=== PATIENT | male | born 1985 | race Caucasian/White ===

== ENCOUNTER 2020-07-23 02:50 | Outpatient (CLI) | payer MEDICAID, SELFPAY ==
[2020-07-23 09:12] LABS: Abs Immature Grans 0.02 10^3/uL (0.0-0.06); Absolute Basophil Count 0.09 10^3/uL (0.0-0.2); Absolute Eosinophil Count 0.12 10^3/uL (0.0-0.7); Absolute Monocyte Count 0.35 10^3/uL (0.1-0.8); Absolute Neutrophil Count 6.06 10^3/uL (1.2-6.7); Basophils % 1.1; Eosinophils % 1.5; HCT 37.7 % (40.0-50.0); HGB 11.5 g/dL (13.5-17.5); Immature Grans % 0.2; Lymphocytes % 17.4; MCHC 30.5 % (32.0-36.0); MCV 98.4 fL (80-95); MPV 10.7 fL (8.0-11.0); Monocytes % 4.4; Neutrophils % 75.4; Nucleated RBC 0 %; Platelet Count 228 10^3/uL (130-400); RBC 3.83 10^6/uL (4.36-5.78); RDW 13.4 % (11.8-14.1); RDW-SD 48.5 fL; WBC 8.04 10^3/uL (4.4-10.8)
[2020-07-23 09:35] LABS: ALT 62 U/L (16-63); AST 75 U/L (15-37); Albumin 4.3 g/dL (3.4-5.0); Alkaline Phosphatase 77 U/L (46-116); Anion Gap 10.3 mmol/L (3-11); BUN 22 mg/dL (7-18); Bilirubin, Total 0.7 mg/dL (0.2-1.0); CO2 34.7 mmol/L (21.0-32.0); CREATININE 1.9 mg/dL (0.70-1.30); Calcium 6.6 mg/dL (8.5-10.1); Chloride 99 mmol/L (98-107); Estimated GFR 40.54 (mL/min/1.73m2); Glucose 93 mg/dL (74-106); Potassium 3.9 mmol/L (3.5-5.1); Sodium 144 mmol/L (136-145); Total Protein 8.5 g/dL (6.4-8.2)
[2020-07-23 09:36] LABS: TSH (W/Ref FT4) 186.87 uIU/mL (0.36-3.74)
[2020-07-23 09:55] LABS: FREE T4 0.19 ng/dL (0.76-1.46)
[2020-07-23 12:44] LABS: Vitamin D 25 Total 8.2 ng/ml (30-100)
[2020-07-24 10:48] LABS: Parathyroid Hormone,Intact <6 pg/mL (19-88)
== END 2020-07-23 02:51 | disposition home or self-care (01) ==
LOC: LBO 02:50
PROVIDERS: PCP Internal Medicine; Visit Provider Family Medicine
DX: E03.9 Hypothyroidism, unspecified (principal); I10 Essential (primary) hypertension; E89.2 Postprocedural hypoparathyroidism; E55.9 Vitamin D deficiency, unspecified
CPT/HCPCS: 36415; 80053; 82306; 82330; 83970; 84439; 84443; 85025

== ENCOUNTER 2020-08-31 17:07 | Outpatient (REF) | payer MEDICAID, SELFPAY ==
[2020-08-31 21:06] LABS: Anion Gap 10.6 mmol/L (3-11); BUN 25 mg/dL (7-18); CO2 32.4 mmol/L (21.0-32.0); CREATININE 1.8 mg/dL (0.70-1.30); Calculated LDL 140 mg/dL (<100); Chloride 102 mmol/L (98-107); Cholesterol 191 mg/dL (<200); Estimated GFR 42.91 (mL/min/1.73m2); Glucose 87 mg/dL (74-106); HDL Cholesterol 40 mg/dL (40-60); Potassium 4.8 mmol/L (3.5-5.1); Sodium 145 mmol/L (136-145); Triglyceride 59 mg/dL (<150)
[2020-08-31 21:20] LABS: Vitamin D 25 Total 18.9 ng/mL (30-100)
[2020-08-31 21:50] LABS: TSH 126.65 uIU/mL (0.36-3.74)
== END 2020-08-31 17:08 | disposition home or self-care (01) ==
LOC: NCHCN 17:07
PROVIDERS: PCP Family Medicine; Visit Provider Family Medicine
DX: I10 Essential (primary) hypertension (principal); E78.5 Hyperlipidemia, unspecified; E03.1 Congenital hypothyroidism without goiter; E89.2 Postprocedural hypoparathyroidism
CPT/HCPCS: 80048; 80061; 82306; 84443

== ENCOUNTER 2020-12-21 18:31 | Outpatient (REF) | payer MEDICAID, SELFPAY ==
[2020-12-21 15:58] LABS: Anion Gap 10.8 mmol/L (3-11); BUN 22 mg/dL (7-18); CO2 28.2 mmol/L (21.0-32.0); CREATININE 1.6 mg/dL (0.70-1.30); Calcium 7.1 mg/dL (8.5-10.1); Chloride 102 mmol/L (98-107); Estimated GFR 49.15 (mL/min/1.73m2); Glucose 117 mg/dL (74-106); Potassium 3.8 mmol/L (3.5-5.1); Sodium 141 mmol/L (136-145)
[2020-12-21 16:37] LABS: TSH 165.71 uIU/mL (0.36-3.74)
== END 2020-12-21 18:32 | disposition home or self-care (01) ==
LOC: NCHCN 18:31
PROVIDERS: PCP Family Medicine; Visit Provider Family Medicine
DX: E03.1 Congenital hypothyroidism without goiter (principal); I10 Essential (primary) hypertension
CPT/HCPCS: 80048; 84443

== ENCOUNTER 2021-03-19 13:12 | Outpatient (REF) | payer MEDICAID, SELFPAY ==
[2021-03-19 21:48] LABS: PHOSPHORUS 7.5 mg/dL (2.6-4.7); TSH 42.33 uIU/mL (0.36-3.74)
== END 2021-03-19 13:13 | disposition home or self-care (01) ==
LOC: NCHCN 13:12
PROVIDERS: PCP Family Medicine; Visit Provider Family Medicine
DX: I10 Essential (primary) hypertension (principal); E03.1 Congenital hypothyroidism without goiter
CPT/HCPCS: 84100; 84443

== ENCOUNTER 2021-09-17 13:10 | Outpatient (REF) | payer MEDICAID, SELFPAY ==
[2021-09-17 21:14] LABS: TSH 15.85 uIU/mL (0.36-3.74)
== END 2021-09-17 13:11 | disposition home or self-care (01) ==
LOC: NCHCN 13:10
PROVIDERS: PCP Family Medicine; Visit Provider Family Medicine
DX: E03.1 Congenital hypothyroidism without goiter (principal)
CPT/HCPCS: 84443

== ENCOUNTER 2021-12-09 11:19 | Outpatient (REF) | payer MEDICAID, SELFPAY ==
[2021-12-09 14:47] LABS: HCT 41.9 % (40.0-50.0); MCH 28.3 pg (27.0-33.0); MCV 91 fL (80-95); MPV 11.1 fL (8.0-11.0); Platelet Count 375 10^3/uL (130-400); RBC 4.59 10^6/uL (4.36-5.78); RDW-SD 47.5 fL; WBC 11.79 10^3/uL (4.4-10.8)
[2021-12-09 15:02] LABS: ALT 43 U/L (16-63); AST 43 U/L (15-37); Albumin 3.9 g/dL (3.4-5.0); Alkaline Phosphatase 111 U/L (46-116); BUN 25 mg/dL (7-18); Bilirubin, Total 0.5 mg/dL (0.2-1.0); CREATININE 1.6 mg/dL (0.70-1.30); Chloride 101 mmol/L (98-107); Estimated GFR 48.88 (mL/min/1.73m2); Glucose 82 mg/dL (74-106); Potassium 4.2 mmol/L (3.5-5.1); Sodium 143 mmol/L (136-145); TSH 48.66 uIU/mL (0.36-3.74); Total Protein 7.8 g/dL (6.4-8.2)
[2021-12-09 15:19] LABS: PHOSPHORUS 8.7 mg/dL (2.6-4.7)
[2021-12-09 15:23] LABS: Calcium 5.2 mg/dL (8.5-10.1)
== END 2021-12-09 11:20 | disposition home or self-care (01) ==
LOC: NCHCN 11:19
PROVIDERS: PCP Family Medicine; Visit Provider Family Medicine
DX: E03.1 Congenital hypothyroidism without goiter (principal); I10 Essential (primary) hypertension; E78.5 Hyperlipidemia, unspecified; D68.0 Von Willebrand disease; N18.1 Chronic kidney disease, stage 1
CPT/HCPCS: 80053; 85027; 84100; 84443

== ENCOUNTER 2021-12-10 13:03 | Observation (INO) | payer MEDICAID, SELFPAY ==
[2021-12-10] VITALS (132 sets, daily range): BP systolic 102–170; BP diastolic 62–127; PULSE 55–92; RESP 10–29; TEMP 36.2–36.7; O2SAT 87–98
--- NOTE | 2021-12-10 13:45 | RT.EKG_ITS ---
APPROVED REPORT Exam: Resting ECG Reason for Exam: low calcium Patient Location: E HR:85 bpm ECG Measurements Heart Rate 85 AXIS NJ 142 P 56 QRSd 97 QRS -27 QT 505 T -21 QTc 602 Conclusion Sinus rhythm...normal P axis, V-rate 60- 99 Inferior infarct, age indeterminate...Q>35mS, T neg, II III aVF Nonspecific T abnormalities, lateral leads...T <-0.10mV, I aVL V5 V6 Prolonged QT interval...QTc >500mS
[2021-12-10] MEDS: Calcium Gluconate 4.65 MEQ/10 ML VIAL 4.65 MG IVP ×2 (14:26→17:45)
[2021-12-10 14:28] LABS: Abs Immature Grans 0.05 10^3/uL (0.0-0.06); Absolute Basophil Count 0.13 10^3/uL (0.0-0.2); Absolute Monocyte Count 0.82 10^3/uL (0.1-0.8); Absolute Neutrophil Count 10.87 10^3/uL (1.2-6.7); Basophils % 0.9; Eosinophils % 1.4; HCT 39.7 % (40.0-50.0); HGB 12.9 g/dL (13.5-17.5); Immature Grans % 0.4; Lymphocytes % 13.6; MCH 29.3 pg (27.0-33.0); MCHC 32.5 % (32.0-36.0); MCV 90 fL (80-95); MPV 10.3 fL (8.0-11.0); Monocytes % 5.9; Neutrophils % 77.8; Platelet Count 366 10^3/uL (130-400); RBC 4.41 10^6/uL (4.36-5.78); RDW-SD 46.5 fL; WBC 13.97 10^3/uL (4.4-10.8)
[2021-12-10 14:42] LABS: ALT 38 U/L (16-63); AST 44 U/L (15-37); Albumin 3.8 g/dL (3.4-5.0); Alkaline Phosphatase 99 U/L (46-116); Anion Gap 14.4 mmol/L (3-11); BUN 24 mg/dL (7-18); Bilirubin, Total 0.5 mg/dL (0.2-1.0); CO2 28.6 mmol/L (21.0-32.0); CREATININE 2.1 mg/dL (0.70-1.30); Chloride 101 mmol/L (98-107); Estimated GFR 35.71 (mL/min/1.73m2); Glucose 87 mg/dL (74-106); Magnesium 1.6 mg/dL (1.8-2.4); Potassium 3.7 mmol/L (3.5-5.1); Sodium 144 mmol/L (136-145); Total Protein 8.2 g/dL (6.4-8.2)
[2021-12-10 14:43] LABS: Source Nasal/Nares
[2021-12-10 14:51] LABS: Calcium 5.1 mg/dL (8.5-10.1)
--- NOTE | 2021-12-10 15:49 | ED.GENADUL_ITS ---
Discharge Plan Disposition Patient Disposition: [facility] INPATIENT Condition: Serious Discharge Details Clinical Impression: Hypocalcemia, Prolonged QT interval Admit Date/Time: 12/10/21 16:35 Admit Provider: Tyrese Pham Attending Provider: Tyrese Pham Primary Care Provider: Gilmar Argueta ED Provider: Jm Cuellar Discharge Data Discharge Date/Time-TO BE ENTERED AT DEPARTURE: 12/10/21 19:57 Medical Decision Making [id number] --36-year-old male with history of thyroidectomy and parathyroidectomy, on prescribed vitamin D and calcium which she has been taking, here with hypocalcemia noted on outpatient screening labs. I reviewed labs that were performed yesterday and calcium was 5.2. He is asymptomatic. An EKG was performed to assess for prolonged QT. EKG was reviewed and interpreted by me: Please see report, sinus rhythm 85 bpm with prolonged QT greater than 500. Patient was given calcium 1 g IV. Labs repeated today and calcium remains low at 5.1. Plan to admit. I called and spoke with Dr. Pham, discussed ED presentation course, he will admit the patient pending telemetry capability. I called and spoke with the supervisor [facility] regarding available telemetry and she will discuss with Dr. Pham. Medical Records Medical records reviewed: Yes I reviewed the patient's medical records. Lab Data Lab results reviewed: Yes I reviewed the patient's lab results. Labs: Laboratory Tests Range/Units 12/10/21 12/10/21 12/10/21 14:20 14:20 14:40 WBC (4.4-10.8) 10^3/uL 13.97 H RBC (4.36-5.78) 10^6/uL 4.41 Hgb (13.5-17.5) g/dL 12.9 L Hct (40.0-50.0) % 39.7 L MCV (80-95) fL 90 MCH (27.0-33.0) pg 29.3 MCHC (32.0-36.0) % 32.5 RDW (11.8-14.1) % 14.0 Plt Count (130-400) 10^3/uL 366 MPV (8.0-11.0) fL 10.3 Immature Gran % 0.4 Neutrophils % 77.8 Lymphocytes % 13.6 Monocytes % 5.9 Eosinophils % 1.4 Basophils % 0.9 Nucleated RBC % (0.0-0.3) % 0.0 Absolute Neutrophils (1.2-6.7) 10^3/uL 10.87 H Absolute Lymphocytes (1.2-3.4) 10^3/uL 1.90 Absolute Monocytes (0.1-0.8) 10^3/uL 0.82 H Absolute Eosinophils (0.0-0.7) 10^3/uL 0.20 Absolute Basophils (0.0-0.2) 10^3/uL 0.13 Sodium (136-145) mmol/L 144 Potassium (3.5-5.1) mmol/L 3.7 Chloride (98-107) mmol/L 101 Carbon Dioxide (21.0-32.0) mmol/L 28.6 Anion Gap (3-11) mmol/L 14.4 H BUN (7-18) mg/dL 24 H Creatinine (0.70-1.30) mg/dL 2.1 H Estimated GFR/1.73 m2 (mL/min/1.73m2) 35.71 Glucose (74-106) mg/dL 87 Calcium (8.5-10.1) mg/dL 5.1 L* Magnesium (1.8-2.4) mg/dL 1.6 L Total Bilirubin (0.2-1.0) mg/dL 0.5 AST (15-37) U/L 44 H ALT (16-63) U/L 38 Alkaline Phosphatase (46-116) U/L 99 Total Protein (6.4-8.2) g/dL 8.2 Albumin (3.4-5.0) g/dL 3.8 COVID-19 Source Nasal/Nares HPI General Mode of arrival: ambulatory . Date/Time Provider Initiated Documentation: 12/10/21 13:48 . Limitations to Documentation: no limitations . Information obtained by: patient and family . HPI Narrative: 36-year-old male with history of thyroidectomy and parathyroidectomy, on calcium, vitamin D and Synthroid, sent by PCP for hypocalcemia noted on routine labs yesterday. Calcium was severely low at 5. No modifiers. Patient notes typically he knows when he is hypocalcemic and has not been feeling any cramping or typical symptoms. No associated seizure. Related Data Home Medications Medication Instructions Recorded Confirmed hydrocodone 5 mg-acetaminophen 325 1 tab PO Q4H PRN PRN #14 tabs 09/04/12 05/10/15 mg tablet ibuprofen 800 mg tablet 800 mg PO TID #60 tabs 09/04/12 05/10/15 colchicine 0.6 mg tablet (Colcrys) 0.6 mg PO DAILY PRN PRN #9 tabs 05/10/15 levothyroxine 300 mcg tablet 300 mcg PO DAILY 12/10/21 12/10/21 lisinopril 10 mg tablet 10 mg PO DAILY 12/10/21 12/10/21 calcitriol 0.25 mcg capsule 0.25 mcg PO BID #60 caps 12/11/21 calcium carbonate 600 mg-vitamin 1 tab PO TID #0 tabs 12/11/21 D3 5 mcg (200 unit) tablet Previous Rx's Medication Instructions Recorded hydrocodone 5 mg-acetaminophen 325 1 tab PO Q4H PRN PRN #14 tabs 09/04/12 mg tablet ibuprofen 800 mg tablet 800 mg PO TID #60 tabs 09/04/12 colchicine 0.6 mg tablet (Colcrys) 0.6 mg PO DAILY PRN PRN #9 tabs 05/10/15 calcitriol 0.25 mcg capsule 0.25 mcg PO BID #60 caps 12/11/21 calcium carbonate 600 mg-vitamin 1 tab PO TID #0 tabs 12/11/21 D3 5 mcg (200 unit) tablet Allergies Allergy/AdvReac Type Severity Reaction Status Date / Time bee venom protein (honey bee) Allergy Anaphylaxis Unverified 12/10/21 15:09 bassam Allergy Anaphylaxis Unverified 12/10/21 15:10 General Stated Complaint: GenMedical AKREN: 3 Review of Systems All systems reviewed & are unremarkable except as noted in HPI and below Constitutional Constitutional: Denies fever(s) Cardiovascular Cardiovascular: Denies chest pain PFSH All Active Problems (Updated 12/12/21 @ 00:06 by REHANA BAUGH) Hypomagnesemia (Acute) Stage 3a chronic kidney disease (Acute) Ankle pain (Acute) Gout (Acute) Renal insufficiency, mild (Acute) Hypocalcemia (Acute) Prolonged QT interval (Acute) Medical History Disorder of thyroid gland Surgical History Thyroid thyroid removed when he was 14. Social History Smoking/Tobacco Use Status: Never Smoking risk assessment performed?: Yes Drug use: Never Do you feel safe at home: Yes Do you feel safe in your relationship?: Yes Additional Social history: lives with his parents in [place]. Not currently working Exam Const General: cooperative and no acute distress HENWI Mouth: moist mucous membranes Eyes Conjunctivae: normal conjunctivae Sclera: normal sclerae Neck Neck: trachea midline and supple Resp Auscultation: clear to auscultation bilaterally, no rales, no rhonchi and no wheezes Cardio Rate: regular rate and not tachycardic Rhythm: regular rhythm GI Palpation: soft, not firm, no guarding, no masses, not rigid and nontender Neuro General: patient alert, patient awake and tone normal Psych Appearance: grossly normal Mental Status: mental status grossly normal Course Vital Signs Vital signs: Vital Signs Temperature 36.2 C L 12/10/21 13:15 Pulse 92 H 12/10/21 13:15 Respiratory Rate 18 12/10/21 13:15 Blood Pressure 166/92 H 12/10/21 13:15 Pulse Oximetry 96 12/10/21 13:15 Temperature 36.2 C L 12/10/21 13:15 Temperature Source Temporal Artery Scan 12/10/21 13:15 Pulse 72 12/10/21 15:36 Pulse 74 12/10/21 15:36 Respiratory Rate 21 12/10/21 15:36 Respiratory Effort Non-Labored 12/10/21 15:02 Respiratory Depth Normal 12/10/21 15:02 Respiratory Pattern Normal 12/10/21 15:02 Blood Pressure 112/74 12/10/21 15:36 Blood Pressure Mean 80 12/10/21 15:36 Blood Pressure Position Sitting 12/10/21 13:15 Pulse Oximetry 92 12/10/21 15:36 Oxygen Delivery Method Room Air 12/10/21 13:15 Oxygen Flow Rate 0 12/10/21 13:15 Pain Level 0 12/10/21 13:15 Lab/Test Results Lab/Test Results: Laboratory Tests Range/Units 12/10/21 12/10/21 12/10/21 14:20 14:20 14:40 WBC (4.4-10.8) 10^3/uL 13.97 H RBC (4.36-5.78) 10^6/uL 4.41 Hgb (13.5-17.5) g/dL 12.9 L Hct (40.0-50.0) % 39.7 L MCV (80-95) fL 90 MCH (27.0-33.0) pg 29.3 MCHC (32.0-36.0) % 32.5 RDW (11.8-14.1) % 14.0 Plt Count (130-400) 10^3/uL 366 MPV (8.0-11.0) fL 10.3 Immature Gran % 0.4 Neutrophils % 77.8 Lymphocytes % 13.6 Monocytes % 5.9 Eosinophils % 1.4 Basophils % 0.9 Nucleated RBC % (0.0-0.3) % 0.0 Absolute Neutrophils (1.2-6.7) 10^3/uL 10.87 H Absolute Lymphocytes (1.2-3.4) 10^3/uL 1.90 Absolute Monocytes (0.1-0.8) 10^3/uL 0.82 H Absolute Eosinophils (0.0-0.7) 10^3/uL 0.20 Absolute Basophils (0.0-0.2) 10^3/uL 0.13 Sodium (136-145) mmol/L 144 Potassium (3.5-5.1) mmol/L 3.7 Chloride (98-107) mmol/L 101 Carbon Dioxide (21.0-32.0) mmol/L 28.6 Anion Gap (3-11) mmol/L 14.4 H BUN (7-18) mg/dL 24 H Creatinine (0.70-1.30) mg/dL 2.1 H Estimated GFR/1.73 m2 (mL/min/1.73m2) 35.71 Glucose (74-106) mg/dL 87 Calcium (8.5-10.1) mg/dL 5.1 L* Magnesium (1.8-2.4) mg/dL 1.6 L Total Bilirubin (0.2-1.0) mg/dL 0.5 AST (15-37) U/L 44 H ALT (16-63) U/L 38 Alkaline Phosphatase (46-116) U/L 99 Total Protein (6.4-8.2) g/dL 8.2 Albumin (3.4-5.0) g/dL 3.8 COVID-19 Source Nasal/Nares
[2021-12-10 17:17] LABS: COVID-19 PCR Negative (Negative)
--- NOTE | 2021-12-10 20:52 | HPE_ITS ---
Date of service: 12/10/21 Time of Service: 20:53 Assessment and Plan Assessment and plan (1) Prolonged QT interval: Status: Acute Assessment and plan: Secondary to hypocalcemia primarily, also hypomagnesemia. See below re: calcium. Also replacing magnesium. Monitoring in ICU on nurse emergency until QTc normalizing. (2) Hypocalcemia: Status: Acute Assessment and plan: This has been a chronic issue with poor control chronically despite calcium and vitamin D3 supplumentation. He would benefit from activated vitamin D, especially with CKD, I have started calcitriol. I did send out PTH and vitamin D levels. He has had 2 grams of calcium in the ED, repeating BMP and calcium infusion ordered, will continue to follow. (3) Stage 3a chronic kidney disease: Status: Acute Assessment and plan: THis has been chronic since 2013 at least with baseline Cr 1.6-1.9. Unclear cause. He is on lisinopril. blood pressure running a bit high now, monitor. (4) Elevated aspartate aminotransferase level: Status: Acute Assessment and plan: This hasn't been evaluated in the past, though high ferritin elevated in the past. Will repeat this with iron/TIBC to assess for hemachromatosis. Hep B/C screens. Given BMI fatty liver also very possible. (5) DVT prophylaxis: Status: Acute Assessment and plan: Yaima score only 1 for BMI, pharmacologic prophylaxis not indicated. (6) Discharge planning issues: Status: Acute Assessment and plan: observation, can discharge once QTc normalized and calcium improved. History of Present Illness History of Present Illness Chief Complaint: low calcium, prolonged QTc Narrative: 36 yo M with surgical hypothyroid and hypoparthyroidism, stage 3a chronic renal insufficiency, low vitamin D, with chronic hypocalcemia sent to the ED by his primary care after routine electrolyte monitoring revealed a calcium of 5.2. In the emergency room an EKG revealed a QTC of 602 and he was treated with calcium gluconate x 2 grams and admission was requested. Randy states he has felt his normal self recently. He had experience symptomatic hypocalcemia in the past with neck/jaw tightness and hair tingling but denies these symptoms now. He denies any recent or current chest pain, palp itations, dizziness, or episodes of passing out. 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 He does take his vitamin D3 as well as calcium carbonate TID. He takes his levothyroxine in the morning with lisinopril. His levothyroxine dose was increased from 300 to 350mcg/day 3 month ago. Review of Systems Constitutional Constitutional: Denies chills, Denies fever(s), Denies headache(s), Reports poor appetite (appetite not great today, relates to being anxious about being here), Denies weakness, Denies weight gain and Denies weight loss Eyes Eyes: Denies change in vision and Denies irritation ENT Ears, Nose, Mouth, and Throat: Denies change in voice, Denies dysphagia, Denies dizziness, Denies headache(s), Denies nasal congestion, Denies nasal discharge and Denies sore throat Cardiovascular Cardiovascular: Denies chest pain, Denies syncope, Denies leg edema, Denies lightheadedness, Denies palpitations and Denies dyspnea Respiratory Respiratory: Denies cough, Denies excessive phlegm production, Denies dyspnea and Denies wheezing Gastrointestinal Gastrointestinal: Denies abdominal pain, Denies constipation, Denies dysphagia, Denies heartburn, Denies loose stools, Denies nausea and Denies vomiting Genitourinary Genitourinary: Denies hematuria, Denies dysuria and Denies urinary incontinence Musculoskeletal Musculoskeletal: Reports arthralgias (just chronic in ankles, arthritis) and Denies joint swelling Comments: gets gout once a year or so, not recently Integumentary/Breasts Skin/Breast: Denies rash and Denies skin ulcer Neurologic Neurologic: Denies abnormal speech, Denies dizziness, Denies syncope, Denies headache(s), Denies localized weakness, Denies seizure-like activity, Denies sensory deficit, Denies paresthesias, Denies tremor(s) and Denies weakness Psychiatric Psychiatric: Reports anxiety and Denies mood swings Endocrine Endocrine: Denies palpitations Hematologic/Lymphatic Hematologic/Lymphatic: Denies easy bleeding Allergic/Immunologic Allergic/Immunologic: Denies wheezing PFSH All Active Problems (Updated 12/10/21 @ 21:23 by Kristian Hamilton) Discharge planning issues (Acute) DVT prophylaxis (Acute) Elevated aspartate aminotransferase level (Acute) Stage 3a chronic kidney disease (Acute) Ankle pain (Acute) Gout (Acute) Renal insufficiency, mild (Acute) Hypocalcemia (Acute) Prolonged QT interval (Acute) Medical History Disorder of thyroid gland Surgical History Thyroid thyroid removed when he was 14. Social History (Updated 12/10/21 @ 21:02 by Kristian Hamilton) Smoking/Tobacco Use Status: Never Smoking risk assessment performed?: Yes Drug use: Never Do you feel safe at home: Yes Do you feel safe in your relationship?: Yes Additional Social history: lives with his parents in [place]. Not c urrently working Meds Allergies and Home Medications Allergies Allergy/AdvReac Type Severity Reaction Status Date / Time bee venom protein (honey bee) Allergy Anaphylaxis Unverified 12/10/21 15:09 bassam Allergy Anaphylaxis Unverified 12/10/21 15:10 Home Medications Medication Instructions Recorded Confirmed Type hydrocodone 5 mg-acetaminophen 325 1 tab PO Q4H PRN PRN #14 tabs 09/04/12 05/10/15 Rx mg tablet ibuprofen 800 mg tablet 800 mg PO TID #60 tabs 09/04/12 05/10/15 Rx colchicine 0.6 mg tablet (Colcrys) 0.6 mg PO DAILY PRN PRN #9 tabs 05/10/15 Rx calcium carbonate 500 mg-vitamin 1 tab DAILY 12/10/21 12/10/21 History D3 2.5 mcg (100 unit) chewable tablet levothyroxine 300 mcg tablet 300 mcg PO DAILY 12/10/21 12/10/21 History lisinopril 10 mg tablet 10 mg PO DAILY 12/10/21 12/10/21 History Exam Narrative Exam Narrative: GEN: Alert and oriented, pleasant and cooperative, gives linear history. No acute distress at rest. He has a mild stutter. HEENT: Head atraumatic. Conjunctiva clear, no icterus. PEERL, EOMI. no rhinorrhea. MMM, OP benign. Neck is supple with no masses or lymphadenopathy, trachea midline LUNGS: CTAB with normal effort CV: RRR with no murmurs, gallops, or rubs. ABD: +BS, soft, NT/ND EXT: no cyanosis, clubbing, or edema MSK: No joint redness or swelling NEURO: CN 2-12 grossly intact. Normal movement of 4 extremities. Normal speech and coordination. his periorbital muscles twitch slightly with tapping over facial nerve. DTRs 2+ reinaldo. no tremor. not clearly elevated muscle tone. SKIN: No rashs or open wounds. PSYCH: normal mood and affect Results Imaging EKG: image reviewed (NSR, QTc 602, non specific T wave abnormalities) Labs Result diagrams: 12/10/21 14:20 12/10/21 14:20 Labs: Laboratory Results - last 24 hr 12/10/21 12/10/21 12/10/21 14:20 14:20 14:40 WBC 13.97 H RBC 4.41 Hgb 12.9 L Hct 39.7 L MCV 90 MCH 29.3 MCHC 32.5 RDW 14.0 Plt Count 366 MPV 10.3 Immature Gran % 0.4 Neutrophils % 77.8 Lymphocytes % 13.6 Monocytes % 5.9 Eosinophils % 1.4 Basophils % 0.9 Nucleated RBC % 0.0 Absolute Neutrophils 10.87 H Absolute Lymphocytes 1.90 Absolute Monocytes 0.82 H Absolute Eosinophils 0.20 Absolute Basophils 0.13 Sodium 144 Potassium 3.7 Chloride 101 Carbon Dioxide 28.6 Anion Gap 14.4 H BUN 24 H Creatinine 2.1 H Estimated GFR/1.73 m2 35.71 Glucose 87 Calcium 5.1 L* Magnesium 1.6 L Total Bilirubin 0.5 AST 44 H ALT 38 Alkaline Phosphatase 99 Total Protein 8.2 Albumin 3.8 COVID-19 Source Nasal/Nares SARS-CoV-2 (PCR) Negative Last Vital Signs Temp 36.2 C L 12/10/21 13:15 Pulse 66 12/10/21 19:46 Resp 13 12/10/21 19:46 BP 134/86 12/10/21 19:46 Pulse Ox 93 12/10/21 17:06
[2021-12-10] MEDS: MAGNESIUM SULFATE 2 GM/50 ML BAG IVPB (21:26)
[2021-12-10] MEDS: Calcitriol 0.25 MCG CAP PO (21:26)
[2021-12-10 21:44] LABS: Anion Gap 14.8 mmol/L (3-11); BUN 27 mg/dL (7-18); CO2 27.2 mmol/L (21.0-32.0); CREATININE 1.9 mg/dL (0.70-1.30); Chloride 100 mmol/L (98-107); Estimated GFR 40.09 (mL/min/1.73m2); Glucose 90 mg/dL (74-106); Potassium 3.5 mmol/L (3.5-5.1); Sodium 142 mmol/L (136-145)
[2021-12-10 21:53] LABS: Calcium < 5.0 mg/dL (8.5-10.1)
[2021-12-10] MEDS: CALCIUM GLUCONATE in NaCl 1 GM/50 ML BAG IVPB (22:47)
[2021-12-11] VITALS (77 sets, daily range): BP systolic 128–166; BP diastolic 79–108; PULSE 48–95; RESP 8–22; TEMP 36.3–36.7; O2SAT 36–100
[2021-12-11 01:13] LABS: Ferritin 405 ng/mL (26-388)
[2021-12-11 02:36] LABS: Calcium 6.1 mg/dL (8.5-10.1)
[2021-12-11 04:06] LABS: Iron 67 ug/dL (65-175); Total Iron Binding Capacity 267 ug/dL (250-450); Transferrin Sat 25 % (20-55)
[2021-12-11 04:18] LABS: Abs Immature Grans 0.04 10^3/uL (0.0-0.06); Absolute Basophil Count 0.11 10^3/uL (0.0-0.2); Absolute Eosinophil Count 0.28 10^3/uL (0.0-0.7); Absolute Lymphocyte Count 2.03 10^3/uL (1.2-3.4); Absolute Monocyte Count 0.58 10^3/uL (0.1-0.8); Absolute Neutrophil Count 8.07 10^3/uL (1.2-6.7); Eosinophils % 2.5; HCT 39.5 % (40.0-50.0); HGB 12.6 g/dL (13.5-17.5); Immature Grans % 0.4; Lymphocytes % 18.3; MCH 28.9 pg (27.0-33.0); MCHC 31.9 % (32.0-36.0); MCV 91 fL (80-95); MPV 10.2 fL (8.0-11.0); Monocytes % 5.2; Neutrophils % 72.6; Platelet Count 317 10^3/uL (130-400); RBC 4.36 10^6/uL (4.36-5.78); RDW-SD 46.6 fL; WBC 11.12 10^3/uL (4.4-10.8)
[2021-12-11 04:37] LABS: ALT 35 U/L (16-63); AST 37 U/L (15-37); Albumin 3.5 g/dL (3.4-5.0); Alkaline Phosphatase 99 U/L (46-116); Anion Gap 10.9 mmol/L (3-11); BUN 23 mg/dL (7-18); Bilirubin, Total 0.7 mg/dL (0.2-1.0); CO2 28.1 mmol/L (21.0-32.0); CREATININE 1.7 mg/dL (0.70-1.30); Chloride 102 mmol/L (98-107); Estimated GFR 45.58 (mL/min/1.73m2); Glucose 88 mg/dL (74-106); Magnesium 2.3 mg/dL (1.8-2.4); Potassium 3.5 mmol/L (3.5-5.1); Sodium 141 mmol/L (136-145)
[2021-12-11 04:45] LABS: Calcium 6.4 mg/dL (8.5-10.1)
[2021-12-11] MEDS: Levothyroxine 175 MCG TAB 350 MCG PO (05:08)
--- NOTE | 2021-12-11 06:45 | RT.EKG_ITS ---
APPROVED REPORT Exam: Resting ECG Reason for Exam: hypocalcemia, prolonged QTc Patient Location: I HR:75 bpm ECG Measurements Heart Rate 75 AXIS RI 140 P 54 QRSd 109 QRS -30 QT 483 T -20 QTc 540 Conclusion Sinus rhythm...normal P axis, V-rate 50- 99 Left ventricular hypertrophy...multiple voltage criteria Inferior infarct, old...Q >35mS, II III aVF Anterior infarct, old...Q >40mS, abnormal ST-T, V2-V5 Prolonged QT interval...QTc >500mS
[2021-12-11 07:03] LABS: Calcium 7.1 mg/dL (8.5-10.1)
[2021-12-11 07:09] LABS: Ionized Calcium 0.55 mmol/L (1.14-1.35)
[2021-12-11] MEDS: Lisinopril 10 MG TAB PO (08:53)
[2021-12-11] MEDS: Calcium 600mg/Vit D 200U TAB 1 TAB PO (08:53)
[2021-12-11] MEDS: Calcitriol 0.25 MCG CAP PO (08:54)
--- NOTE | 2021-12-11 10:33 | DSE_ITS ---
Date of service: 12/11/21 Time of Service: 10:34 DS: Diagnosis Discharge Diagnosis (1) Prolonged QT interval: Status: Acute (2) Hypocalcemia: Status: Acute (3) Stage 3a chronic kidney disease: Status: Acute (4) Elevated aspartate aminotransferase level: Status: Resolved (5) DVT prophylaxis: Status: Deleted (6) Discharge planning issues: Status: Deleted Discharge Plan Disposition Patient Disposition: HOME Condition: Serious Discharge Details Reason For Visit: Hypocalcemia, Hypomagnesemia, QTC Prolongation Admit Date/Time: 12/10/21 16:35 Admit Provider: Tyrese Pham Attending Provider: Tyrese Pham Primary Care Provider: Gilmar Argueta wendi Hospital Course Hospital Course: 36 yo M with surgical hypothyroid and hypoparthyroidism, stage 3a chronic renal insufficiency, low vitamin D, with chronic hypocalcemia sent to the ED by his primary care after routine electrolyte monitoring revealed a calcium of 5.2.? Ionized calcium low at 0.55. In the emergency room an EKG revealed a QTC of 602 and he was treated with calcium gluconate x 2 grams and admission was requested. Randy states he has felt his normal self recently.? He had experience symptomatic hypocalcemia in the past with neck/jaw tightness and hair tingling but denies these symptoms now.? He denies any recent or current chest pain, palpitations, dizziness, or episodes of passing out.? ?He had his thyroid removed at age 13 due to an enlarged, multinodular, hypoactive gland, and unfortunately he has had low calcium since then.? He does take his vitamin D3 as well as calcium carbonate TID.? He takes his levothyroxine in the morning with lisinopril.? His levothyroxine dose was increased from 300 to 350mcg/day 3 month ago. ? TSH 48.66. Creatinine 1.7; in his baseline range. Magnesium low at 1.6. K was low normal. He and his parents, who he lives with, endorse that he is very regimented in taking his medications. Calcitriol initiated. A calclium infusion initiated. The following day he remained asymptomatic. QTc still prolonged. His calcium had improved to 7.1. His magnesium normalized with supplementation. He was discharged to home on calcitriol and an increased dose of his calcium /Vit D supplement. Lab to be drawn the following Monday. Follow up with PCP next week. Endocrine referral sent by PCP Home Meds and New Rx's Prescriptions: New calcium carbonate-vitamin D3 600 mg-5 mcg (200 unit) Tablet 1 tab PO TID Qty: 0 0RF calcitriol 0.25 mcg Capsule 0.25 mcg PO BID Qty: 60 0RF Continued ibuprofen 800 MG tablet 800 mg PO TID Qty: 60 0RF hydrocodone-acetaminophen 1 TAB tablet 1 tab PO Q4H PRN PRNQty: 14 0RF colchicine [Colcrys] 0.6 MG tablet 0.6 mg PO DAILY PRN PRNQty: 9 0RF Rx Instructions: Take 2 tabs once and then follow with one tab one hour later. If pain persist may repeat 24 hrs later. levothyroxine 300 mcg tablet 300 mcg PO DAILY Label Comments: TAKE ONE TABLET BY MOUTH EVERY DAY ON AN EMPTY STOMACH lisinopril 10 mg tablet 10 mg PO DAILY Discontinued calcium carbonate-vitamin D3 500 mg-2.5 mcg (100 unit) tablet,chewable 1 tab DAILY Label Comments: CHEW AND SWALLOW ONE TABLET THREE TIMES DAILY Discharge Instructions Activity:: Activity as Tolerated Equipment/Supplies:: No Equipment Needed Diet:: Resume usual home diet Discharge Orders Discharge Orders: Discharge Order (Routine); Ordered 12/11/21 Ordered By: Rodney Nevarez Other Ambulatory Orders: Comprehensive Metabolic Panel (Routine) Timeframe: 3 Days Location: None Selected Ordered By: Rodney Nevarez Magnesium (Routine) Timeframe: 3 Days Location: None Selected Ordered By: Rodney Nevarez Discharge Data Discharge Date/Time-TO BE ENTERED AT DEPARTURE: 12/11/21 11:32 DS: Summary Time Spent with Patient providing and/or coordinating discharge services: Greater than 30 minutes Status at Discharge Functional status at discharge: independent ambulation Overall status at discharge: patient is progressing back to baseline Mental Status: mental status grossly normal Speech and Movement: speech and movement normal Mood: congruent mood Affect: normal affect Exam Narrative Exam Narrative: GEN: Sitting in chair eating breakfast. Alert and oriented, pleasant and cooperative, gives linear history. No acute distress at rest. He has a mild stutter. HEENT: Head atraumatic. Conjunctiva clear, no icterus. MMM, OP benign. LUNGS: CTAB with normal effort CV: RRR with no murmurs. ABD: +BS, soft, NT/ND EXT: no cyanosis, clubbing, or edema MSK: No joint redness or swelling NEURO: CN 2-12 grossly intact. Normal movement of 4 extremities. Normal speech and coordination. SKIN: No rashs or open wounds. PSYCH: normal mood and affect Psych Mental Status: mental status grossly normal Speech and Movement: speech and movement normal Mood: congruent mood Affect: normal affect DS: Data Vitals/I&O Vitals and I&O: Vital Signs Temperature 36.3 C L 12/11/21 07:00 Temperature Source Temporal Artery Scan 12/11/21 07:00 Pulse 59 L 12/11/21 06:01 Pulse 77 12/11/21 09:30 Respiratory Rate 16 12/11/21 09:30 Respiratory Effort Non-Labored 12/11/21 07:00 Respiratory Depth Normal 12/11/21 07:00 Respiratory Pattern Normal 12/11/21 07:00 Blood Pressure 148/98 H 12/11/21 06:01 Blood Pressure Mean 110 12/11/21 06:01 Blood Pressure Position Sitting 12/10/21 13:15 Pulse Oximetry 94 12/11/21 09:30 Oxygen Delivery Method Room Air 12/11/21 00:08 Oxygen Flow Rate 0 12/11/21 00:08 Pain Level 0 12/11/21 07:00 Comment 12/11/21 00:40 Intake & Output 12/10/21 12/10/21 12/11/21 11:59 23:59 11:59 Intake Total 50 / 50 1160 / 1160 Output Total 1275 / 1275 Balance 50 / 50 -115 / -115 Weight 123 kg 123 kg Intake: IV 50 / 50 50 / 50 Oral 1110 / 1110 Output: Urine 1275 / 1275 Other: Urine Color Pale Urine Appearance Clear Urine Odor None Voiding Methods Urinal Data Completed and Pending Labs on day of discharge: Labs from last 24 hours 12/11/21 12/11/21 12/11/21 06:35 04:02 04:02 WBC 11.12 H RBC 4.36 Hgb 12.6 L Hct 39.5 L MCV 91 MCH 28.9 MCHC 31.9 L RDW 14.0 Plt Count 317 MPV 10.2 Immature Gran % 0.4 Neutrophils % 72.6 Lymphocytes % 18.3 Monocytes % 5.2 Eosinophils % 2.5 Basophils % 1.0 Nucleated RBC % 0.0 Absolute Neutrophils 8.07 H Absolute Lymphocytes 2.03 Absolute Monocytes 0.58 Absolute Eosinophils 0.28 Absolute Basophils 0.11 Sodium Potassium Chloride Carbon Dioxide Anion Gap BUN Creatinine Estimated GFR/1.73 m2 Glucose Calcium 7.1 L Ionized Calcium Magnesium Iron TIBC Transferrin % Sat Ferritin Total Bilirubin AST ALT Alkaline Phosphatase Total Protein Albumin 25-OH Vitamin D Total Pending PTH Intact COVID-19 Source SARS-CoV-2 (PCR) Hep Bs Antigen Hepatitis C Antibody 12/11/21 12/11/21 12/11/21 04:02 02:00 02:00 WBC RBC Hgb Hct MCV MCH MCHC RDW Plt Count MPV Immature Gran % Neutrophils % Lymphocytes % Monocytes % Eosinophils % Basophils % Nucleated RBC % Absolute Neutrophils Absolute Lymphocytes Absolute Monocytes Absolute Eosinophils Absolute Basophils Sodium 141 Potassium 3.5 Chloride 102 Carbon Dioxide 28.1 Anion Gap 10.9 BUN 23 H Creatinine 1.7 H Estimated GFR/1.73 m2 45.58 Glucose 88 Calcium 6.4 L 6.1 L* Ionized Calcium Magnesium 2.3 Iron TIBC Transferrin % Sat Ferritin Total Bilirubin 0.7 AST 37 ALT 35 Alkaline Phosphatase 99 Total Protein 8.0 Albumin 3.5 25-OH Vitamin D Total PTH Intact COVID-19 Source SARS-CoV-2 (PCR) Hep Bs Antigen Hepatitis C Antibody Pending 12/11/21 12/11/21 12/11/21 02:00 02:00 00:00 WBC RBC Hgb Hct MCV MCH MCHC RDW Plt Count MPV Immature Gran % Neutrophils % Lymphocytes % Monocytes % Eosinophils % Basophils % Nucleated RBC % Absolute Neutrophils Absolute Lymphocytes Absolute Monocytes Absolute Eosinophils Absolute Basophils Sodium Potassium Chloride Carbon Dioxide Anion Gap BUN Creatinine Estimated GFR/1.73 m2 Glucose Calcium Ionized Calcium Magnesium Iron 67 TIBC 267 Transferrin % Sat 25 Ferritin Total Bilirubin AST ALT Alkaline Phosphatase Total Protein Albumin 25-OH Vitamin D Total PTH Intact Pending COVID-19 Source SARS-CoV-2 (PCR) Hep Bs Antigen Pending Hepatitis C Antibody 12/10/21 12/10/21 12/10/21 21:23 21:23 14:40 WBC RBC Hgb Hct MCV MCH MCHC RDW Plt Count MPV Immature Gran % Neutrophils % Lymphocytes % Monocytes % Eosinophils % Basophils % Nucleated RBC % Absolute Neutrophils Absolute Lymphocytes Absolute Monocytes Absolute Eosinophils Absolute Basophils Sodium 142 Potassium 3.5 Chloride 100 Carbon Dioxide 27.2 Anion Gap 14.8 H BUN 27 H Creatinine 1.9 H Estimated GFR/1.73 m2 40.09 Glucose 90 Calcium < 5.0 L* Ionized Calcium Magnesium Iron TIBC Transferrin % Sat Ferritin 405 H Total Bilirubin AST ALT Alkaline Phosphatase Total Protein Albumin 25-OH Vitamin D Total PTH Intact COVID-19 Source Nasal/Nares SARS-CoV-2 (PCR) Negative Hep Bs Antigen Hepatitis C Antibody 12/10/21 12/10/21 12/10/21 14:20 14:20 14:20 WBC 13.97 H RBC 4.41 Hgb 12.9 L Hct 39.7 L MCV 90 MCH 29.3 MCHC 32.5 RDW 14.0 Plt Count 366 MPV 10.3 Immature Gran % 0.4 Neutrophils % 77.8 Lymphocytes % 13.6 Monocytes % 5.9 Eosinophils % 1.4 Basophils % 0.9 Nucleated RBC % 0.0 Absolute Neutrophils 10.87 H Absolute Lymphocytes 1.90 Absolute Monocytes 0.82 H Absolute Eosinophils 0.20 Absolute Basophils 0.13 Sodium 144 Potassium 3.7 Chloride 101 Carbon Dioxide 28.6 Anion Gap 14.4 H BUN 24 H Creatinine 2.1 H Estimated GFR/1.73 m2 35.71 Glucose 87 Calcium 5.1 L* Ionized Calcium 0.55 L* Magnesium 1.6 L Iron TIBC Transferrin % Sat Ferritin Total Bilirubin 0.5 AST 44 H ALT 38 Alkaline Phosphatase 99 Total Protein 8.2 Albumin 3.8 25-OH Vitamin D Total PTH Intact COVID-19 Source SARS-CoV-2 (PCR) Hep Bs Antigen Hepatitis C Antibody PFSH All Active Problems (Updated 12/12/21 @ 00:06 by REHANA BAUGH) Hypomagnesemia (Acute) Stage 3a chronic kidney disease (Acute) Ankle pain (Acute) Gout (Acute) Renal insufficiency, mild (Acute) Hypocalcemia (Acute) Prolonged QT interval (Acute) Medical History Disorder of thyroid gland Surgical History Thyroid thyroid removed when he was 14. Social History Smoking/Tobacco Use Status: Never Smoking risk assessment performed?: Yes Drug use: Never Do you feel safe at home: Yes Do you feel safe in your relationship?: Yes Additional Social history: lives with his parents in [place]. Not currently working
[2021-12-13 05:58] LABS: Vitamin D 25 Total 16.3 ng/mL (30-100)
[2021-12-13 09:30] LABS: Hepatitis B Surface Ag Negative (Negative)
[2021-12-13 09:38] LABS: Hepatitis C Ab w Rflx HCV PCR Negative (Negative)
[2021-12-13 10:25] LABS: Parathyroid Hormone,Intact <6 pg/mL (19-88)
== END 2021-12-11 11:32 | disposition home or self-care (01) ==
LOC: ER 16:44 → ICU 20:00
PROVIDERS: Family Medicine; Admitting Provider Internal Medicine; Emergency Provider Student in an Organized Health Care Education/Training Program; PCP Family Medicine; Visit Provider Internal Medicine
DX: E83.51 Hypocalcemia (principal); R94.31 Abnormal electrocardiogram [ECG] [EKG]; Z79.899 Other long term (current) drug therapy; E83.42 Hypomagnesemia; N18.31 Chronic kidney disease, stage 3a; R74.01 Elevation of levels of liver transaminase levels; E89.0 Postprocedural hypothyroidism; E89.2 Postprocedural hypoparathyroidism; I25.2 Old myocardial infarction; M10.9 Gout, unspecified; Z20.822 Contact with and (suspected) exposure to COVID-19
CPT/HCPCS: 36415; 80048; 80053; 82306; 86803; 87340; 87635; 93005; 96365; 96366; 96367; 96374; 96376; 99285; 82310; 82330; 82728; 83540; 83550; 83735; 83970; 85025; 93010; 99217; G0378; J0610

== ENCOUNTER 2021-12-13 17:22 | Outpatient (REF) | payer MEDICAID, SELFPAY ==
[2021-12-13 15:26] LABS: ALT 35 U/L (16-63); AST 36 U/L (15-37); Albumin 3.9 g/dL (3.4-5.0); Alkaline Phosphatase 104 U/L (46-116); BUN 25 mg/dL (7-18); Bilirubin, Total 0.6 mg/dL (0.2-1.0); CREATININE 1.5 mg/dL (0.70-1.30); Calcium 6.8 mg/dL (8.5-10.1); Estimated GFR 52.66 (mL/min/1.73m2); Glucose 91 mg/dL (74-106); Total Protein 8.5 g/dL (6.4-8.2)
[2021-12-13 15:36] LABS: Chloride 100 mmol/L (98-107); Potassium 3.6 mmol/L (3.5-5.1); Sodium 142 mmol/L (136-145)
== END 2021-12-13 17:23 | disposition home or self-care (01) ==
LOC: NCHCN 17:22
PROVIDERS: Family Medicine; PCP Family Medicine; Visit Provider Family Medicine
DX: E83.42 Hypomagnesemia (principal); E83.51 Hypocalcemia
CPT/HCPCS: 80053; 83735

== ENCOUNTER 2022-01-14 09:12 | Outpatient (REF) | payer MEDICAID, SELFPAY ==
[2022-01-14 16:15] LABS: Calcium 7.3 mg/dL (8.5-10.1); Magnesium 2.4 mg/dL (1.8-2.4); PHOSPHORUS 7.6 mg/dL (2.6-4.7); TSH 0.15 uIU/mL (0.36-3.74)
== END 2022-01-14 09:13 | disposition home or self-care (01) ==
LOC: NCHCN 09:12
PROVIDERS: PCP Family Medicine; Visit Provider Family Medicine
DX: E03.1 Congenital hypothyroidism without goiter (principal); E83.51 Hypocalcemia
CPT/HCPCS: 82310; 83735; 84100; 84443

== ENCOUNTER 2022-04-26 20:46 | Outpatient (REF) | payer MEDICAID, SELFPAY ==
[2022-04-26 15:34] LABS: Calcium 6.6 mg/dL (8.5-10.1); PHOSPHORUS 7.1 mg/dL (2.6-4.7); TSH 0.27 uIU/mL (0.36-3.74)
== END 2022-04-26 20:47 | disposition home or self-care (01) ==
LOC: NCHCN 20:46
PROVIDERS: PCP Family Medicine; Visit Provider Family Medicine
DX: E03.1 Congenital hypothyroidism without goiter (principal); E83.51 Hypocalcemia; I10 Essential (primary) hypertension; N18.1 Chronic kidney disease, stage 1
CPT/HCPCS: 82310; 84100; 84443

== ENCOUNTER 2022-06-13 15:06 | Outpatient (REF) | payer MEDICAID, SELFPAY ==
[2022-06-13 14:58] LABS: ALT 29 U/L (16-63); AST 32 U/L (15-37); Albumin 4.1 g/dL (3.4-5.0); Alkaline Phosphatase 129 U/L (46-116); Anion Gap 10.2 mmol/L (3-11); BUN 18 mg/dL (7-18); Bilirubin, Total 0.6 mg/dL (0.2-1.0); CO2 30.8 mmol/L (21.0-32.0); CREATININE 1.5 mg/dL (0.70-1.30); Calcium 6.6 mg/dL (8.5-10.1); Chloride 101 mmol/L (98-107); Estimated GFR 61.11 (mL/min/1.73m2); Glucose 84 mg/dL (74-106); Potassium 4.2 mmol/L (3.5-5.1); Sodium 142 mmol/L (136-145); TSH 17.84 uIU/mL (0.36-3.74); Total Protein 8.4 g/dL (6.4-8.2)
== END 2022-06-13 15:07 | disposition home or self-care (01) ==
LOC: NCHCN 15:06
PROVIDERS: PCP Family Medicine; Visit Provider Family Medicine
DX: E03.1 Congenital hypothyroidism without goiter (principal); E89.2 Postprocedural hypoparathyroidism; Z51.81 Encounter for therapeutic drug level monitoring
CPT/HCPCS: 80053; 84443

== ENCOUNTER 2022-09-19 02:29 | Outpatient (CLI) | payer MEDICAID, SELFPAY ==
[2022-09-19 09:34] LABS: ALT 28 U/L (16-63); AST 30 U/L (15-37); Albumin 3.8 g/dL (3.4-5.0); Alkaline Phosphatase 106 U/L (46-116); Anion Gap 11.1 mmol/L (3-11); BUN 28 mg/dL (7-18); Bilirubin, Total 0.6 mg/dL (0.2-1.0); CO2 29.9 mmol/L (21.0-32.0); CREATININE 1.6 mg/dL (0.70-1.30); Chloride 102 mmol/L (98-107); Estimated GFR 56.21 (mL/min/1.73m2); Glucose 96 mg/dL (74-106); Potassium 3.5 mmol/L (3.5-5.1); Sodium 143 mmol/L (136-145); TSH 33.46 uIU/mL (0.36-3.74); Total Protein 8.6 g/dL (6.4-8.2)
[2022-09-19 10:26] LABS: Calcium 6.2 mg/dL (8.5-10.1)
== END 2022-09-19 02:30 | disposition home or self-care (01) ==
LOC: LBO 02:29
PROVIDERS: PCP Family Medicine; Visit Provider Internal Medicine Endocrinology, Diabetes & Metabolism
DX: E89.0 Postprocedural hypothyroidism (principal); N18.31 Chronic kidney disease, stage 3a
CPT/HCPCS: 36415; 80053; 84443

== ENCOUNTER 2022-12-15 09:37 | Outpatient (REF) | payer MEDICAID, SELFPAY ==
[2022-12-15 15:25] LABS: Anion Gap 9.4 mmol/L (3-11); BUN 19 mg/dL (7-18); CO2 29.6 mmol/L (21.0-32.0); CREATININE 1.5 mg/dL (0.70-1.30); Chloride 103 mmol/L (98-107); Estimated GFR 60.73 (mL/min/1.73m2); Glucose 101 mg/dL (74-106); PHOSPHORUS 6.2 mg/dL (2.6-4.7); Potassium 3.5 mmol/L (3.5-5.1); Sodium 142 mmol/L (136-145); TSH 0.11 uIU/mL (0.36-3.74)
== END 2022-12-15 09:38 | disposition home or self-care (01) ==
LOC: NCHCN 09:37
PROVIDERS: PCP Family Medicine; Visit Provider Family Medicine
DX: Z00.00 Encounter for general adult medical examination without abnormal findings (principal); E03.1 Congenital hypothyroidism without goiter; E83.51 Hypocalcemia; E89.2 Postprocedural hypoparathyroidism; I12.9 Hypertensive chronic kidney disease with stage 1 through stage 4 chronic kidney disease, or unspecified chronic kidney disease; N18.31 Chronic kidney disease, stage 3a
CPT/HCPCS: 80048; 82306; 84100; 84443

== ENCOUNTER 2023-04-17 19:45 | Emergency (ER) | payer MEDICAID, SELFPAY ==
[2023-04-17] VITALS (18 sets, daily range): BP systolic 136–166; BP diastolic 90–121; PULSE 69–86; RESP 12–21; TEMP 36.7–36.8; O2SAT 94–98
--- NOTE | 2023-04-17 19:45 | RT.EKG_ITS ---
APPROVED REPORT Exam: Resting ECG Reason for Exam: low Ca Patient Location: E HR:79 bpm ECG Measurements Heart Rate 79 AXIS WY 167 P 47 QRSd 105 QRS -29 QT 458 T 113 QTc 525 Conclusion Sinus rhythm...normal P axis, V-rate 60- 99 Inferior infarct, old...Q >35mS, II III aVF Nonspecific T abnormalities, lateral leads...T <-0.10mV, I aVL V5 V6 Prolonged QT interval...QTc >500mS
[2023-04-17 20:35] LABS: Abs Immature Grans 0.05 10^3/uL (0.0-0.06); Absolute Eosinophil Count 0.13 10^3/uL (0.0-0.7); Absolute Lymphocyte Count 2.48 10^3/uL (1.2-3.4); Absolute Monocyte Count 0.52 10^3/uL (0.1-0.8); Absolute Neutrophil Count 8.36 10^3/uL (1.2-6.7); Basophils % 0.9; Eosinophils % 1.1; HCT 41.4 % (40.0-50.0); HGB 13.7 g/dL (13.5-17.5); Immature Grans % 0.4; Lymphocytes % 21.3; MCH 28.8 pg (27.0-33.0); MCHC 33.1 % (32.0-36.0); MCV 87 fL (80-95); MPV 10.2 fL (8.0-11.0); Monocytes % 4.5; Neutrophils % 71.8; Platelet Count 305 10^3/uL (130-400); RBC 4.76 10^6/uL (4.36-5.78); RDW-SD 44.8 fL; WBC 11.65 10^3/uL (4.4-10.8)
--- NOTE | 2023-04-17 20:51 | ED.GENADUL_ITS ---
Discharge Plan Disposition Patient Disposition: Home Discharge Details Clinical Impression: Prolonged QT interval, Hypocalcemia Primary Care Provider: Gilmar Argueta ED Provider: Edmar Giles Home Meds and New Rx's Prescriptions: Continued ibuprofen 800 MG tablet 800 mg PO TID Qty: 60 0RF hydrocodone-acetaminophen 1 TAB tablet 1 tab PO Q4H PRN PRNQty: 14 0RF colchicine (gout) [Colcrys] 0.6 MG tablet 0.6 mg PO DAILY PRN PRNQty: 9 0RF Rx Instructions: Take 2 tabs once and then follow with one tab one hour later. If pain persist may repeat 24 hrs later. levothyroxine 300 mcg tablet 150 mcg PO DAILY Patient Comments: TAKE ONE TABLET BY MOUTH EVERY DAY ON AN EMPTY STOMACH lisinopril 10 mg tablet 10 mg PO DAILY calcium carbonate-vitamin D3 600 mg-5 mcg (200 unit) Tablet 1 tab PO TID Qty: 0 0RF calcitriol 0.25 mcg Capsule 0.5 mcg PO BID Discharge Instructions Instructions: Hypocalcemia (ED) Additional Instructions: Please continue to monitor symptoms and if you become symptomatic at any point even mildly symptomatic return to the emergency department immediately. We have given you a lab slip for outpatient labs that should be performed in 2 days and please follow-up with your primary care provider to discuss those results. If emergent findings do come back someone should be contacting you but again if you are symptomatic return immediately. Referrals: Gilmar Argueta MD [Primary Care Provider] - 2 days Medical Decision Making Patient presenting to the emergency department after referral from endocrinology clinic for low calcium. Patient states he is asymptomatic and feeling fine but he had labs performed today and sent in due to results. Patient results thyroid and parathyroid surgery as a teenager and has needed to be on calcium and thyroid medications his whole life. Patient reports previously willing he has had issues with his calcium he has had more lethargy and somnolence along with some facial spasms. Again he denies any symptoms at this time. Physical exam is unremarkable and no signs of tetany or carpal spasms are noted. We will plan on rechecking patient's labs. Please see physician interpretation for full interpretation of EKG but upon my review patient is in sinus rhythm does have prolonged QTc of 525 which last time he was admitted he did have a QTc of over 600. At discharge patient continued to have prolonged QTc but I do not see an EKG performed on the inpatient unit when he was discharged. Reviewed patient's labs and patient does have a slightly elevated white count and neutrophils otherwise unremarkable Cbc, CMP does show calcium of 5.8, potassium of 3.3, BUN of 25 creatinine of 2.0 with a GFR 43 which is lower than patient's baseline. Patient does have elevated anion gap. Magnesium is 1.9 albumin is within normal range. Did replete potassium orally and gave patient double dose of calcium carbonate and vitamin D which he normally takes. Reassessed patient and patient continues to be asymptomatic. We will give patient a dose of calcium gluconate IV and recheck calcium as patient and family is requesting discharge home if possible given that he has no symptoms. Calcium did slightly improved to 6.0 other abnormalities also remained fairly consistent with previous labs. Reassessed patient and again patient states no significant worsening of symptoms and again is otherwise asymptomatic. Given this I do feel that patient is able to be safely discharged but did inform patient to double his dose of his calcium meds tomorrow and then lab was ordered for outpatient basis for patient to have basic metabolic panel rechecked preferably on Monday morning and then patient to follow-up with primary care provider after labs performed. Referral was placed to primary care provider for this. Both patient and family clearly state understanding if patient becomes symptomatic at any point that he should return immediately to the emergency department for reassessment and stat labs along with high probability of need of admission at that point for further continuation of calcium repletion. After discussion of diagnosis and plan of care, family and patient has no further needs, questions, or concerns and states clear understanding to return to the emergency department for any worsening symptoms. This documentation was generated using [employer] system, please disregard any oddities of phrase or misspellings. Lab Data Lab results reviewed: Yes I reviewed the patient's lab results. HPI General Mode of arrival: ambulatory . Date/Time Provider Initiated Documentation: 04/17/23 19:47 . Limitations to Documentation: no limitations . Information obtained by: patient, family and RN notes reviewed . History of Present Illness 37 year old M presents to the emergency department with the chief complaint of Low calcium, Patient started experiencing this unknown Patient notes no other symptoms.. Patient did receive the following treatments prior to arrival, none Related Data Home Medications Medication Instructions Recorded Confirmed hydrocodone 5 mg-acetaminophen 325 1 tab PO Q4H PRN PRN #14 tabs 09/04/12 04/17/23 mg tablet ibuprofen 800 mg tablet 800 mg PO TID #60 tabs 09/04/12 04/17/23 colchicine (gout) 0.6 mg tablet 0.6 mg PO DAILY PRN PRN #9 tabs 05/10/15 04/17/23 (Colcrys) levothyroxine 300 mcg tablet 150 mcg PO DAILY 12/10/21 04/17/23 lisinopril 10 mg tablet 10 mg PO DAILY 12/10/21 04/17/23 calcium carbonate 600 mg-vitamin 1 tab PO TID #0 tabs 12/11/21 04/17/23 D3 5 mcg (200 unit) tablet calcitriol 0.25 mcg capsule 0.5 mcg PO BID 04/17/23 04/17/23 Previous Rx's Medication Instructions Recorded hydrocodone 5 mg-acetaminophen 325 1 tab PO Q4H PRN PRN #14 tabs 09/04/12 mg tablet ibuprofen 800 mg tablet 800 mg PO TID #60 tabs 09/04/12 colchicine (gout) 0.6 mg tablet 0.6 mg PO DAILY PRN PRN #9 tabs 05/10/15 (Colcrys) calcium carbonate 600 mg-vitamin 1 tab PO TID #0 tabs 12/11/21 D3 5 mcg (200 unit) tablet Allergies Allergy/AdvReac Type Severity Reaction Status Date / Time bee venom protein (honey bee) Allergy Anaphylaxis Unverified 04/17/23 19:55 bassam Allergy Anaphylaxis Unverified 04/17/23 19:55 General Stated Complaint: GenMedical KAREN: 4 Review of Systems Constitutional Constitutional: Denies chills, Denies fever(s), Denies headache(s), Denies malaise and Denies weakness ENT Ears, Nose, Mouth, and Throat: Denies headache(s) Cardiovascular Cardiovascular: Denies chest pain and Denies dyspnea Respiratory Respiratory: Denies cough and Denies dyspnea Gastrointestinal Gastrointestinal: Denies abdominal pain, Denies diarrhea and Denies vomiting Musculoskeletal Musculoskeletal: Denies myalgias, Reports muscle cramps, Denies numbness and Denies stiffness Neurologic Neurologic: Denies abnormal movements, Denies headache(s), Denies localized weakness, Denies numbness, Denies tremor(s) and Denies weakness PFSH All Active Problems (Updated 04/17/23 @ 23:59 by Edmar Giles NP) Hypomagnesemia (Acute) Stage 3a chronic kidney disease (Acute) Ankle pain (Acute) Gout (Acute) Renal insufficiency, mild (Acute) Hypocalcemia (Acute) Prolonged QT interval (Acute) Medical History Disorder of thyroid gland Surgical History Thyroid thyroid removed when he was 14. Social History Smoking/Tobacco Use Status: Never Smoking risk assessment performed?: Yes Alcohol Intake: never Drug use: Never Do you feel safe at home: Yes Do you feel safe in your relationship?: Yes Additional Social history: lives with his parents in [place]. Not currently working Exam Const General: cooperative, no acute distress and not ill appearing Orientation: alert, awake and oriented x3 HENMT Mouth: moist mucous membranes Resp Effort & Inspection: normal respiratory effort, able to speak in complete sentences and no respiratory distress Cardio Rate: regular rate Rhythm: regular rhythm Heart Sounds: S1 normal and S2 normal Skin General skin exam: no rashes or lesions noted Neuro General: patient alert, patient awake, patient oriented x3, moves all extremities and no focal motor deficits Motor: muscle tone normal throughout and no fasciculations Sensory Exam: no sensory deficits noted Course Vital Signs Vital signs: Vital Signs Temperature 36.7 C 04/17/23 19:47 Pulse 86 04/17/23 19:47 Respiratory Rate 16 04/17/23 19:47 Blood Pressure 139/95 H 04/17/23 19:47 Pulse Oximetry 97 04/17/23 19:47 Temperature 36.8 C 04/17/23 20:39 Temperature Source Oral 04/17/23 20:39 Pulse 82 04/17/23 20:39 Respiratory Rate 16 04/17/23 20:41 Respiratory Effort Normal, Non-Labored 04/17/23 20:41 Respiratory Depth Normal 04/17/23 20:41 Respiratory Pattern Normal 04/17/23 20:41 Blood Pressure 136/90 04/17/23 20:39 Blood Pressure Position Sitting 04/17/23 20:39 Pulse Oximetry 98 04/17/23 20:39 Oxygen Delivery Method Room Air 04/17/23 20:39 Oxygen Flow Rate 0 04/17/23 19:47 Pain Level 0 04/17/23 19:47 Lab/Test Results Lab/Test Results: Laboratory Tests Range/Units 04/17/23 20:30 WBC (4.4-10.8) 10^3/uL 11.65 H RBC (4.36-5.78) 10^6/uL 4.76 Hgb (13.5-17.5) g/dL 13.7 Hct (40.0-50.0) % 41.4 MCV (80-95) fL 87 MCH (27.0-33.0) pg 28.8 MCHC (32.0-36.0) % 33.1 RDW (11.8-14.1) % 14.0 Plt Count (130-400) 10^3/uL 305 MPV (8.0-11.0) fL 10.2 Immature Gran % 0.4 Neutrophils % 71.8 Lymphocytes % 21.3 Monocytes % 4.5 Eosinophils % 1.1 Basophils % 0.9 Nucleated RBC % (0.0-0.3) % 0.0 Absolute Neutrophils (1.2-6.7) 10^3/uL 8.36 H Absolute Lymphocytes (1.2-3.4) 10^3/uL 2.48 Absolute Monocytes (0.1-0.8) 10^3/uL 0.52 Absolute Eosinophils (0.0-0.7) 10^3/uL 0.13 Absolute Basophils (0.0-0.2) 10^3/uL 0.10
[2023-04-17 20:57] LABS: ALT 46 U/L (16-63); AST 83 U/L (15-37); Albumin 4.3 g/dL (3.4-5.0); Alkaline Phosphatase 98 U/L (46-116); Anion Gap 12.9 mmol/L (3-11); BUN 25 mg/dL (7-18); Bilirubin, Total 0.7 mg/dL (0.2-1.0); CO2 30.1 mmol/L (21.0-32.0); Chloride 98 mmol/L (98-107); Glucose 111 mg/dL (74-106); Magnesium 1.9 mg/dL (1.8-2.4); Potassium 3.3 mmol/L (3.5-5.1); Sodium 141 mmol/L (136-145)
[2023-04-17 21:13] LABS: Calcium 5.8 mg/dL (8.5-10.1)
[2023-04-17] MEDS: Calcium 600mg/Vit D 200U TAB 2 TAB PO (21:47)
[2023-04-17] MEDS: Potassium Chloride 20 MEQ TABCR PO (21:48)
[2023-04-17] MEDS: Calcium Gluconate 4.65 MEQ/10 ML VIAL 4.65 MG IVP (22:44)
[2023-04-17] MEDS: Normal Saline 100 ML (22:45)
[2023-04-17] MEDS: Normal Saline 500 ML IV (22:49)
[2023-04-17 23:52] LABS: Anion Gap 13.6 mmol/L (3-11); BUN 26 mg/dL (7-18); CO2 28.4 mmol/L (21.0-32.0); CREATININE 2.1 mg/dL (0.70-1.30); Chloride 100 mmol/L (98-107); Estimated GFR 40.56 (mL/min/1.73m2); Glucose 92 mg/dL (74-106); Potassium 3.3 mmol/L (3.5-5.1); Sodium 142 mmol/L (136-145)
--- NOTE | 2023-04-18 00:04 | NUR.NOTE ---
Referral faxed to [facility], Dr Argueta to f/u in 48hrs 04/19/23 for hypocalcemia. Patient will have labs drawn prior to appt.Nursing Note:
[2023-04-18 00:05] VITALS: BP 157/100; PULSE 74; RESP 14; O2SAT 98
--- NOTE | 2023-04-20 08:25 | NUR.NOTE ---
Accessed chart to determine number of EKG orders. Nursing Note:
== END 2023-04-18 00:08 | disposition home or self-care (01) ==
PROVIDERS: Emergency Provider Nurse Practitioner Family; PCP Family Medicine
DX: E83.51 Hypocalcemia (principal); R94.31 Abnormal electrocardiogram [ECG] [EKG]
CPT/HCPCS: 80048; 80053; 93005; 96374; 99284; 83735; 84100; 85025; 93010; J0612

== ENCOUNTER 2023-04-19 13:20 | Outpatient (CLI) | payer MEDICAID, SELFPAY ==
[2023-04-19 09:24] LABS: Anion Gap 10.1 mmol/L (3-11); BUN 19 mg/dL (7-18); CO2 30.9 mmol/L (21.0-32.0); CREATININE 1.8 mg/dL (0.70-1.30); Calcium 7.9 mg/dL (8.5-10.1); Chloride 101 mmol/L (98-107); Glucose 95 mg/dL (74-106); Potassium 3.8 mmol/L (3.5-5.1); Sodium 142 mmol/L (136-145)
== END 2023-04-19 13:21 | disposition home or self-care (01) ==
LOC: LBO 13:20
PROVIDERS: PCP Family Medicine; Visit Provider Nurse Practitioner Family
DX: E83.51 Hypocalcemia (principal)
CPT/HCPCS: 36415; 80048

== ENCOUNTER 2023-05-09 16:20 | Outpatient (CLI) | payer MEDICAID, SELFPAY ==
[2023-05-09 09:14] LABS: ALT 25 U/L (16-63); AST 40 U/L (15-37); Alkaline Phosphatase 92 U/L (46-116); BUN 35 mg/dL (7-18); Bilirubin, Total 0.6 mg/dL (0.2-1.0); CREATININE 1.9 mg/dL (0.70-1.30); Calcium 6.7 mg/dL (8.5-10.1); Chloride 103 mmol/L (98-107); Estimated GFR 45.73 (mL/min/1.73m2); FREE T4 0.85 ng/dL (0.76-1.46); Glucose 87 mg/dL (74-106); Potassium 4.2 mmol/L (3.5-5.1); Sodium 142 mmol/L (136-145); TSH 61.19 uIU/mL (0.36-3.74); Total Protein 8.7 g/dL (6.4-8.2)
== END 2023-05-09 16:21 | disposition home or self-care (01) ==
LOC: LBO 16:21
PROVIDERS: PCP Family Medicine; Visit Provider Internal Medicine Endocrinology, Diabetes & Metabolism
DX: E89.2 Postprocedural hypoparathyroidism (principal)
CPT/HCPCS: 36415; 80053; 84439; 84443

== ENCOUNTER 2023-06-15 11:53 | Outpatient (CLI) | payer MEDICAID, SELFPAY ==
[2023-06-15 13:45] LABS: ALT 32 U/L (16-63); AST 26 U/L (15-37); Albumin 4.2 g/dL (3.4-5.0); Alkaline Phosphatase 98 U/L (46-116); Anion Gap 6.5 mmol/L (3-11); BUN 28 mg/dL (7-18); Bilirubin, Total 0.7 mg/dL (0.2-1.0); CO2 32.5 mmol/L (21.0-32.0); CREATININE 1.7 mg/dL (0.70-1.30); Calcium 9.9 mg/dL (8.5-10.1); Chloride 101 mmol/L (98-107); Estimated GFR 52.26 (mL/min/1.73m2); Glucose 88 mg/dL (74-106); PHOSPHORUS 6.6 mg/dL (2.6-4.7); Potassium 4.4 mmol/L (3.5-5.1); Sodium 140 mmol/L (136-145); TSH 10.16 uIU/mL (0.36-3.74); Total Protein 8.6 g/dL (6.4-8.2)
== END 2023-06-15 11:54 | disposition home or self-care (01) ==
LOC: LBO 11:53
PROVIDERS: PCP Family Medicine; Visit Provider Internal Medicine Endocrinology, Diabetes & Metabolism
DX: E89.0 Postprocedural hypothyroidism (principal); E89.2 Postprocedural hypoparathyroidism
CPT/HCPCS: 36415; 80053; 84100; 84439; 84443

== ENCOUNTER 2023-07-24 18:40 | Outpatient (REF) | payer MEDICAID, SELFPAY ==
[2023-07-24 15:17] LABS: HCT 43.2 % (40.0-50.0); HGB 14.2 g/dL (13.5-17.5); MCH 29.3 pg (27.0-33.0); MCHC 32.9 % (32.0-36.0); MCV 89 fL (80-95); MPV 10.7 fL (8.0-11.0); Platelet Count 350 10^3/uL (130-400); RBC 4.84 10^6/uL (4.36-5.78); RDW 11.9 % (11.8-14.1); RDW-SD 38.4 fL; WBC 10.54 10^3/uL (4.4-10.8)
[2023-07-24 15:47] LABS: BUN 28 mg/dL (7-18); CREATININE 1.7 mg/dL (0.70-1.30); Calcium 7.8 mg/dL (8.5-10.1); Chloride 101 mmol/L (98-107); Estimated GFR 52.26 (mL/min/1.73m2); Glucose 93 mg/dL (74-106); PHOSPHORUS 6.3 mg/dL (2.6-4.7); Potassium 3.8 mmol/L (3.5-5.1); Sodium 142 mmol/L (136-145); TSH (W/Ref FT4) 72.42 uIU/mL (0.36-3.74)
[2023-07-24 16:10] LABS: FREE T4 1.41 ng/dL (0.76-1.46)
== END 2023-07-24 18:41 | disposition home or self-care (01) ==
LOC: NCHCN 18:40
PROVIDERS: PCP Family Medicine; Visit Provider Family Medicine
DX: I10 Essential (primary) hypertension (principal); E03.9 Hypothyroidism, unspecified
CPT/HCPCS: 80048; 85027; 84100; 84439; 84443

== ENCOUNTER 2023-08-30 04:43 | Outpatient (CLI) | payer MEDICAID, SELFPAY ==
[2023-08-30 11:42] LABS: ALT 24 U/L (16-63); AST 28 U/L (15-37); Albumin 3.8 g/dL (3.4-5.0); Alkaline Phosphatase 97 U/L (46-116); Anion Gap 9.4 mmol/L (3-11); BUN 27 mg/dL (7-18); Bilirubin, Total 0.5 mg/dL (0.2-1.0); CO2 29.6 mmol/L (21.0-32.0); CREATININE 1.5 mg/dL (0.70-1.30); Calcium 8.2 mg/dL (8.5-10.1); Chloride 101 mmol/L (98-107); Estimated GFR 60.36 (mL/min/1.73m2); FREE T4 2.05 ng/dL (0.76-1.46); Glucose 89 mg/dL (74-106); PHOSPHORUS 5.9 mg/dL (2.6-4.7); Potassium 3.7 mmol/L (3.5-5.1); Sodium 140 mmol/L (136-145); TSH 6.43 uIU/Ml (0.36-3.74); Total Protein 8.6 g/dL (6.4-8.2)
[2023-08-30 12:50] LABS: Vitamin D 25 Total 17.9 ng/mL (30-100)
== END 2023-08-30 04:44 | disposition home or self-care (01) ==
LOC: LBO 04:43
PROVIDERS: PCP Family Medicine; Visit Provider Internal Medicine Endocrinology, Diabetes & Metabolism
DX: E89.2 Postprocedural hypoparathyroidism (principal); E89.0 Postprocedural hypothyroidism; E83.51 Hypocalcemia
CPT/HCPCS: 36415; 80053; 82306; 84100; 84439; 84443

== ENCOUNTER 2025-04-04 10:01 | Inpatient (IN) | payer MEDICAID, SELFPAY ==
[2025-04-04] VITALS (103 sets, daily range): BP systolic 109–220; BP diastolic 50–193; PULSE 52–86; RESP 0–30; TEMP 36.2–36.5; O2SAT 73–100
--- NOTE | 2025-04-04 10:00 | RT.EKG_ITS ---
APPROVED REPORT Exam: Resting ECG Reason for Exam: thyroid Patient Location: E HR:75 bpm ECG Measurements Heart Rate 75 AXIS NH 165 P 48 QRSd 100 QRS -20 QT 502 T 29 QTc 560 Conclusion Sinus rhythm, rate 75 Prolonged QTc at 560ms, increased compared to priors No STEMI Q waves III, aVF, unchanged from priors
--- NOTE | 2025-04-04 10:13 | W.ED.GENAD ---
Discharge Plan Disposition Patient Disposition: Admit to [facility] Condition: Fair Discharge Details Clinical Impression: Hypocalcemia, Prolonged QT interval, Stage 3a chronic kidney disease Primary Care Provider: Gilmar Argueta ED Provider: Ignrid Zamora Home Meds and New Rx's Prescriptions: No Action ibuprofen 800 MG tablet 800 mg PO TID Qty: 60 0RF levothyroxine 300 mcg tablet 150 mcg PO DAILY Patient Comments: TAKE ONE TABLET BY MOUTH EVERY DAY ON AN EMPTY STOMACH lisinopril 10 mg tablet 10 mg PO DAILY calcium carbonate-vitamin D3 600 mg-5 mcg (200 unit) Tablet 1 tab PO TID Qty: 0 0RF calcitriol 0.25 mcg Capsule 0.5 mcg PO BID HPI General Mode of arrival: ambulatory. Date/Time Provider Initiated Documentation: 04/04/25 10:03. Limitations to Documentation: no limitations. Information obtained by: patient, family and old records reviewed. HPI Narrative: This is a 39-year-old male patient with a past medical history significant for hypoparathyroidism, hypothyroidism, CKD, and difficult to manage low calcium, presenting for evaluation of low calcium on laboratory studies today. The patient has had some illnesses since January, but did have a worsening with a an upper respiratory virus last week. Many people in the home that he lives and were sick with similar symptoms, states that his fever broke last Monday, denies sputum production or significant cough. He has had increased fatigue, states that he has been trying to keep taking his medications, did take his thyroid medication this morning. He was contacted by his dry cleaning checker who noted a severely low calcium at 6.0, and recommended that he be seen at the emergency department for intravenous calcium repletion. Additionally, the patient sounded more fatigued and somnolent on the phone, and they want to be sure that the patient does not developing myxedema coma. The patient reports no nausea or vomiting, difficulty maintaining oral intake, denies fever or chills, dysuria, constipation, or diarrhea. Related Data Home Medications Medication Instructions Recorded Confirmed ibuprofen 800 mg tablet 800 mg PO TID #60 tabs 09/04/12 04/04/25 levothyroxine 300 mcg tablet 150 mcg PO DAILY 12/10/21 04/04/25 lisinopril 10 mg tablet 10 mg PO DAILY 12/10/21 04/04/25 calcium 600 mg (as 1 tab PO TID #0 tabs 12/11/21 04/04/25 carbonate)-vitamin D3 5 mcg (200 unit) tablet calcitriol 0.25 mcg capsule 0.5 mcg PO BID 04/17/23 04/04/25 Previous Rx's Medication Instructions Recorded ibuprofen 800 mg tablet 800 mg PO TID #60 tabs 09/04/12 calcium 600 mg (as 1 tab PO TID #0 tabs 12/11/21 carbonate)-vitamin D3 5 mcg (200 unit) tablet Allergies Allergy/AdvReac Type Severity Reaction Status Date / Time bee venom protein (honey bee) Allergy Anaphylaxis Unverified 04/04/25 10:06 bassam Allergy Anaphylaxis Unverified 04/04/25 10:06 General Stated Complaint: GenMedical KAREN: 3 Exam Narrative Exam Narrative: Gen: Awake and alert, in no apparent distress HEENT: Non-icteric sclera Neck: Supple Lungs: No apparent respiratory distress, normal respiratory effort. Lung sounds clear and equal bilaterally without wheezes, rhonchi, rales CV: Appears well perfused, heart with regular rate and rhythm, no murmurs auscultated Abdomen: Non-distended, soft, nontender MSK: Moves 4 extremities without apparent limitation in ROM. No peripheral edema Skin: Visualized skin without rashes, cyanosis. Neuro: Normal Gait, no obvious focal deficits or facial asymmetry. Speaks in full, clear sentences. Psych: Appropriate for situation. Course Vital Signs Vital signs: Vital Signs Temperature 36.5 C 04/04/25 10:02 Pulse 86 04/04/25 10:02 Respiratory Rate 18 04/04/25 10:02 Blood Pressure 156/111 H 04/04/25 10:02 Pulse Oximetry 96 04/04/25 10:02 Temperature 36.5 C 04/04/25 10:02 Pulse 86 04/04/25 10:02 Respiratory Rate 18 04/04/25 10:02 Blood Pressure 156/111 H 04/04/25 10:02 Pulse Oximetry 96 04/04/25 10:02 Oxygen Delivery Method Room Air 04/04/25 10:02 Oxygen Flow Rate 0 04/04/25 10:02 Pain Level 3 04/04/25 10:02 Medical Decision Making This is a 39-year-old male patient presenting for evaluation of metabolic derangements and recent upper respiratory illness. My differential includes but is not limited to hypocalcemia, other electrolyte derangements, medication nonadherence in the setting of recent illness. Certainly considered viral URI, pneumonia, bronchitis. At this time, the patient is not hypothermic, bradycardic, and does not have alteration in mental status to increase my concern for myxedema coma, though certainly hypothyroidism was considered. The patient has no fever, tachycardia, or low blood pressure to increase my concern for sepsis or bacteremia. I obtained and reviewed an EKG, which shows a sinus rhythm with a prolonged QTc, but no evidence of active ischemia. We will obtain labs to include CBC, CMP, magnesium, lactate, TSH, VBG, and will provide the patient with a dose of calcium gluconate. - I reviewed the patient's labs, which show no leukocytosis, mild anemia to 12.2 and no thrombocytopenia. VBG without evidence of hypercarbia which further reassures me against myxedema coma. Chemistry panel notable for a hypokalemia to 3.0, baseline renal function, and a very low calcium at 6.0. No evidence of liver dysfunction, BNP is low, TSH is significantly elevated to 200 though the free T4 is within normal limits. COVID swab negative, chest x-ray without focal findings suggestive of pneumonia. After receiving the calcium, repeat EKG was performed which does not show significant improvement in the QTc prolongation. Repeat calcium level 5.9, and I do not feel that this patient is appropriate for outpatient repletion given the concerning the low levels and active EKG changes. For this reason I reached out to Dr. Hamilton with the hospitalist team who has graciously accepted this patient for admission to their service. I coordinated with the [facility] pharmacy team for a calcium drip. The patient remained hemodynamically appropriate and was transferred from our department without incident. Ingrid Zamora MD [facility] All Active Problems (Updated 04/04/25 @ 14:57 by Ingrid Zamora MD) Hypomagnesemia (Acute) Stage 3a chronic kidney disease (Acute) Ankle pain (Acute) Gout (Acute) Renal insufficiency, mild (Acute) Hypocalcemia (Acute) Prolonged QT interval (Acute) Medical History Disorder of thyroid gland Surgical History Thyroid thyroid removed when he was 14. Social History Smoking/Tobacco Use Status: Never Smoking risk assessment performed?: Yes Alcohol Intake: never Drug use: Never Do you feel safe at home: Yes Do you feel safe in your relationship?: Yes Additional Social history: lives with his parents in [place]. Not currently working
[2025-04-04 10:29] LABS: BE (Venous) 5 mmol/L (-2-3); HCO3 (Venous) 30 mmol/L (23-28); O2 Sat (Venous) 89 %; TCO2 (Venous) 27 mmol/L (24-29); pCO2 (Venous) 44 mmHg (41-51); pO2 (Venous) 55 mmHg
[2025-04-04] MEDS: Calcium Gluconate 4.65 MEQ/10 ML VIAL 4.65 MG IVP (10:31)
[2025-04-04 10:32] LABS: Abs Immature Grans 0.04 10^3/uL (0.0-0.06); HCT 36.7 % (40.0-50.0); HGB 12.2 g/dL (13.5-17.5); Immature Grans % 0.4 %; MCH 30.4 pg (27.0-33.0); MCHC 33.2 % (32.0-36.0); MCV 92 fL (80-95); MPV 10.5 fL (8.0-11.0); Platelet Count 223 10^3/uL (130-400); RBC 4.01 10^6/uL (4.36-5.78); RDW 12.6 % (11.8-14.1); RDW-SD 42.5 fL; WBC 9.79 10^3/uL (4.4-10.8)
[2025-04-04] MEDS: Normal Saline 100 ML 200 ML (10:32)
--- NOTE | 2025-04-04 10:52 | DI.RAD_ITS ---
Exam(s) XR CHEST 2V PA LATERAL EXAM: XR CHEST 2V PA LATERAL CLINICAL HISTORY: Recent respiratory illness. TECHNIQUE: 2D digital imaging was performed. COMPARISON: No exams were available for comparison FINDINGS: 2 views: Heart size is normal. The mediastinum is not widened. Lungs are clear. No infiltrates nor pleural effusions. IMPRESSION: No acute pulmonary findings. DATA REPOSITORY: RADIATION DOSE DELIVERED:
[2025-04-04 11:11] LABS: ALT 55 U/L (16-63); AST 116 U/L (15-37); Albumin 4.4 g/dL (3.4-5.0); Alkaline Phosphatase 74 U/L (46-116); Anion Gap 14.7 mmol/L (3-11); BUN 27 mg/dL (7-18); Bilirubin, Total 1.0 mg/dL (0.2-1.0); CO2 29.3 mmol/L (21.0-32.0); Chloride 99 mmol/L (98-107); Glucose 94 mg/dL (74-106); Magnesium 2.0 mg/dL (1.8-2.4); Potassium 3.3 mmol/L (3.5-5.1); Sodium 143 mmol/L (136-145); Total Protein 8.8 g/dL (6.4-8.2)
[2025-04-04 11:13] LABS: Calcium 6.1 mg/dL (8.5-10.1); TSH (W/Ref FT4) 208.91 uIU/mL (0.36-3.74)
[2025-04-04 11:28] LABS: COVID-19 PCR Negative (Negative); RSV PCR Negative (Negative)
--- NOTE | 2025-04-04 12:45 | RT.EKG_ITS ---
APPROVED REPORT Exam: Resting ECG Reason for Exam: repeat, low calcium Patient Location: E HR:67 bpm ECG Measurements Heart Rate 67 AXIS AR 179 P 58 QRSd 100 QRS -19 QT 525 T 40 QTc 555 Conclusion Sinus rhythm, rate 67 Prolonged QTc at 555ms, no significant change from prior No STEMI Q waves III, aVF, unchanged from priors
[2025-04-04 13:28] LABS: Anion Gap 12.9 mmol/L (3-11); BUN 26 mg/dL (7-18); CO2 31.1 mmol/L (21.0-32.0); Chloride 100 mmol/L (98-107); Glucose 84 mg/dL (74-106); Potassium 3.0 mmol/L (3.5-5.1); Sodium 144 mmol/L (136-145)
[2025-04-04 13:37] LABS: Calcium 5.9 mg/dL (8.5-10.1)
[2025-04-04] MEDS: POTASSIUM CHLORIDE 10 MEQ/100 ML BAG 100 MEQ IV_INF ×2 (14:39→16:02)
--- NOTE | 2025-04-04 14:41 | W.PC.ACHO ---
Registration Status: REG ER Primary Language: Preferred Language: Frisian ED Information & Data Chief Complaint GenMedical 04/04/25 10:13 Triage Note pt sent from structural designer 04/04/25 10:02 for low calcium and elevated TSH Medical / Surgical History (Last Reviewed 04/17/23 @ 23:52 by Edmar Giles NP) Disorder of thyroid gland (Last Reviewed 04/17/23 @ 23:52 by Edmar Giles NP) Thyroid Most Recent Vital Signs Temperature 36.5 C 04/04/25 10:12 Pulse 74 04/04/25 13:05 Pulse 76 04/04/25 13:05 Respiratory Rate 9 L 04/04/25 13:05 Respiratory Effort Normal 04/04/25 10:12 Respiratory Depth Normal 04/04/25 10:12 Respiratory Pattern Normal 04/04/25 10:12 Blood Pressure 170/120 H 04/04/25 13:05 Blood Pressure Mean 134 04/04/25 13:05 Pulse Oximetry 95 04/04/25 13:05 Oxygen Delivery Method Room Air 04/04/25 10:12 Oxygen Flow Rate 0 04/04/25 10:12 Pain Level 3 04/04/25 10:12 Allergies bee venom protein (honey bee) Allergy (Unverified 04/04/25 10:06) Anaphylaxis bassam Allergy (Unverified 04/04/25 10:06) Anaphylaxis IV IV Catheter Type [Left Saline Lock Antecubital] IV Catheter Gauge [Left 18 Antecubital] Diet Orders Category Date Time Status Heart Healthy Eating [DIET] Nutrition 04/04/25 Dinner Active Diagnostics 04/04/25 04/04/25 04/04/25 Range/Units 13:05 10:24 10:17 WBC 9.79 (4.4-10.8) 10^3/uL RBC 4.01 L (4.36-5.78) 10^6/uL Hgb 12.2 L (13.5-17.5) g/dL Hct 36.7 L (40.0-50.0) % MCV 92 (80-95) fL MCH 30.4 (27.0-33.0) pg MCHC 33.2 (32.0-36.0) % RDW 12.6 (11.8-14.1) % Plt Count 223 (130-400) 10^3/uL MPV 10.5 (8.0-11.0) fL Immature Gran % 0.4 % Neutrophils % 70.0 % Lymphocytes % 21.7 % Monocytes % 5.6 % Eosinophils % 1.5 % Basophils % 0.8 % Nucleated RBC % 0.0 (0.0-0.3) % Absolute Neutrophils 6.85 H (1.2-6.7) 10^3/uL Absolute Lymphocytes 2.12 (1.2-3.4) 10^3/uL Absolute Monocytes 0.55 (0.1-0.8) 10^3/uL Absolute Eosinophils 0.15 (0.0-0.7) 10^3/uL Absolute Basophils 0.08 (0.0-0.2) 10^3/uL VBG pH 7.43 H (7.31-7.41) VBG pCO2 44 (41-51) mmHg VBG pO2 55 mmHg VBG HCO3 30 H (23-28) mmol/L VBG Total CO2 27 (24-29) mmol/L VBG O2 Saturation 89 % VBG Base Excess 5 H (-2-3) mmol/L VBG Lactate 1.0 (<or=2.0) mmol/L Sodium 144 143 (136-145) mmol/L Potassium 3.0 L 3.3 L (3.5-5.1) mmol/L Chloride 100 99 (98-107) mmol/L Carbon Dioxide 31.1 29.3 (21.0-32.0) mmol/L Anion Gap 12.9 H 14.7 H (3-11) mmol/L BUN 26 H 27 H (7-18) mg/dL Creatinine 1.8 H 2.0 H (0.70-1.30) mg/dL Est GFR (CKD-EPI 2020) 48.20 42.47 (mL/min/1.73m2) Glucose 84 94 (74-106) mg/dL Calcium 5.9 L* 6.1 L* (8.5-10.1) mg/dL Magnesium 2.0 (1.8-2.4) mg/dL Total Bilirubin 1.0 (0.2-1.0) mg/dL AST 116 H (15-37) U/L ALT 55 (16-63) U/L Alkaline Phosphatase 74 (46-116) U/L NT-Pro-B Natriuret Pep 348 H (<300) pg/mL Total Protein 8.8 H (6.4-8.2) g/dL Albumin 4.4 (3.4-5.0) g/dL TSH 208.91 H (0.36-3.74) uIU/mL Free T4 0.86 (0.76-1.46) ng/dL COVID-19 Source Nasopharynx SARS-CoV-2 (PCR) Negative (Negative) Influenza Type A (PCR) Negative (Negative) Influenza Type B (PCR) Negative (Negative) RSV (PCR) Negative (Negative) Intake and Output - 24 Hour Total 04/04/25 10:01 thru 04/04/25 10:02 Weight 122.47 kg Falls Risk Assessment History of Falls No History 04/04/25 10:12 Contributing Factors No Factors 04/04/25 10:12 Ambulatory Aids Independent 04/04/25 10:12 Tubes/Lines None 04/04/25 10:12 Gait Evaluation No gait disturbance 04/04/25 10:12 Cognition No cognitive impairment 04/04/25 10:12 Fall Total Score 0 04/04/25 10:12 Level of Risk Standard/Low Risk 04/04/25 10:12 v v v v v v v v v Sending and/or Receiving Nurses: Please use comment section below to note any information pertinent to the patient hand-off not included above. Information / Comments: Report received from: Beatriz Farmer, EMT-P All questions answered
[2025-04-04] MEDS: Potassium Chloride 20 MEQ TABCR 40 MEQ PO (14:42)
[2025-04-04] MEDS: NORMAL SALINE IVPB (15:28)
[2025-04-04] MEDS: CALCIUM GLUCONATE IVPB (15:28)
--- NOTE | 2025-04-04 15:28 | W.PM.HP.N ---
Date of service: 04/04/25 Time of Service: 15:28 Assessment and Plan Assessment and plan (1) Hypocalcemia: Status: Acute Assessment and plan: Severe with assocaited prolonged QTc. Given this, IV infusion started. This is acute on chronic, a/w loosing parathyroid tissue after thyroidectomy. Also on oral Ca/vit D Get vitamin D and PTH levels. Unfortunately ionized Ca is a send out so it won't help us. (2) Hypokalemia: Status: Acute Assessment and plan: Replaced in the ED, follow. (3) Prolonged QT interval: Status: Acute Assessment and plan: Secondary to low calcium. Mg normal today, but potassium low. Replacing both See above, follow on telemetry. (4) Stage 3a chronic kidney disease: Status: Acute Assessment and plan: near baseline GFR, follow. (5) Hypothyroidism: Status: Chronic Assessment and plan: TSH very high. He may be taking meds inconsistently. Denies supplements such as biotin. Consider HH RN on discharge or at least weekly pill box. Presentation not c/w myxedematous coma. Ft4 is acutally WNL and he doesn't have severe symptoms. (6) Elevated transaminase level: Status: Acute Assessment and plan: This is chronic to some extent. May be MASLD with elevated BMI. Follow. History of Present Illness History of Present Illness Chief Complaint: low calcium Narrative: 39 yo M with CKD3a, hypothyroidism and hypocalcemia s/p thyroidectomy as a child who was sent by endocrinology clinic for severely low calcium and elevated TSH. Calcium was 6.0 with no imrpovements on repeat after coming into the ED, then 5.9 after a dose of IV calcium gluconate. TSH was 208.91. He states he has had flu-type symptoms for a week with nasal congestion, cough, and general aching. No fevers. He does admit to a 15lb weight gain in the past 2 months. He denies constipation, muscle cramps, depression, or fatigue until he got sick with respiratory illness this week. He states he takes his medications regularly and doesn't take non-prescribed supplements. He tekes the levothyroxine first. He takes calcium before meals. He also takes vitamin D and calcitriol. He states he is not perfect about his medications and can sometimes miss them but generally takes them. He states he has had low and high calcium and TSH in the past. When he gets really low, his neck and jaw gets stiff. He hasn't noted this or tremors. He hasn't had diarrhea. He hasn't had chest pain, dizziness, or palpitations. Review of Systems All systems reviewed & are unremarkable except as noted in HPI and below Constitutional Constitutional: Reports snoring (low O2 when sleeping per RN) Respiratory Respiratory: Denies hemoptysis, Denies excessive phlegm production and Reports snoring (low O2 when sleeping per RN) PFSH All Active Problems (Updated 04/04/25 @ 15:58 by Kristian Hamilton) Elevated transaminase level (Acute) Hypokalemia (Acute) Hypothyroidism (Chronic) Hypomagnesemia (Acute) Stage 3a chronic kidney disease (Acute) Prolonged QT interval (Acute) Hypocalcemia (Acute) Gout (Acute) Ankle pain (Acute) Medical History Disorder of thyroid gland Surgical History Thyroid thyroid removed when he was 14. Social History Smoking/Tobacco Use Status: Never Smoking risk assessment performed?: Yes Alcohol Intake: never Drug use: Never Do you feel safe at home: Yes Do you feel safe in your relationship?: Yes Additional Social history: lives with his parents in [place]. Not currently working Meds Allergies and Home Medications Allergies Allergy/AdvReac Type Severity Reaction Status Date / Time bee venom protein (honey bee) Allergy Anaphylaxis Unverified 04/04/25 10:06 bassam Allergy Anaphylaxis Unverified 04/04/25 10:06 Home Medications Medication Instructions Recorded Confirmed Type ibuprofen 800 mg tablet 800 mg PO TID #60 tabs 09/04/12 04/04/25 Rx levothyroxine 300 mcg tablet 150 mcg PO DAILY 12/10/21 04/04/25 History lisinopril 10 mg tablet 10 mg PO DAILY 12/10/21 04/04/25 History calcium 600 mg (as 1 tab PO TID #0 tabs 12/11/21 04/04/25 Rx carbonate)-vitamin D3 5 mcg (200 unit) tablet calcitriol 0.25 mcg capsule 0.5 mcg PO BID 04/17/23 04/04/25 History Exam Narrative Exam Narrative: GEN: Alert and oriented x 4, pleasant and cooperative, gives linear history. Obese. No acute distress at rest. Voice sounds congested with fullness in throat but intelligible. HEENT: Head atraumatic. Conjunctiva clear, no icterus. PEERL, EOMI. no rhinorrhea. MMM, OP benign. Neck is supple with no masses or lymphadenopathy, trachea midline LUNGS: CTAB with normal effort CV: RRR with no murmurs, gallops, or rubs. ABD: active bowel sounds, soft, nontender and nondistended. No masses. EXT: no cyanosis, clubbing. Trace ankle edema MSK: No joint redness or swelling NEURO: CN 2-12 grossly intact. No jaw contracture with tapping on facial nerve. No contracture of arm with BP cuff. Normal movement of 4 extremities. DTRs 2+, symmetric. Normal speech and coordination. No tremor SKIN: No rashes or open wounds. PSYCH: normal mood and affect, normal thought process. Results Labs 04/04/25 10:24 04/04/25 13:05 Labs: Laboratory Results - last 24 hr 04/04/25 04/04/25 04/04/25 10:17 10:24 13:05 WBC 9.79 RBC 4.01 L Hgb 12.2 L Hct 36.7 L MCV 92 MCH 30.4 MCHC 33.2 RDW 12.6 Plt Count 223 MPV 10.5 Immature Gran % 0.4 Neutrophils % 70.0 Lymphocytes % 21.7 Monocytes % 5.6 Eosinophils % 1.5 Basophils % 0.8 Nucleated RBC % 0.0 Absolute Neutrophils 6.85 H Absolute Lymphocytes 2.12 Absolute Monocytes 0.55 Absolute Eosinophils 0.15 Absolute Basophils 0.08 VBG pH 7.43 H VBG pCO2 44 VBG pO2 55 VBG HCO3 30 H VBG Total CO2 27 VBG O2 Saturation 89 VBG Base Excess 5 H VBG Lactate 1.0 Sodium 143 144 Potassium 3.3 L 3.0 L Chloride 99 100 Carbon Dioxide 29.3 31.1 Anion Gap 14.7 H 12.9 H BUN 27 H 26 H Creatinine 2.0 H 1.8 H Est GFR (CKD-EPI 2020) 42.47 48.20 Glucose 94 84 Calcium 6.1 L* 5.9 L* Magnesium 2.0 Total Bilirubin 1.0 AST 116 H ALT 55 Alkaline Phosphatase 74 NT-Pro-B Natriuret Pep 348 H Total Protein 8.8 H Albumin 4.4 TSH 208.91 H Free T4 0.86 COVID-19 Source Nasopharynx SARS-CoV-2 (PCR) Negative Influenza Type A (PCR) Negative Influenza Type B (PCR) Negative RSV (PCR) Negative Last Vital Signs Temp 36.5 C 04/04/25 10:12 Pulse 74 04/04/25 14:42 Resp 30 H 04/04/25 14:42 BP 191/118 H 04/04/25 14:42 Pulse Ox 98 04/04/25 14:42 Time Spent Time spent with Patient: 55-74 minutes Time was spent: preparing to see the patient(eg.review tests), obtaining and/or reviewing separately otained hiistory, ordering medications,tests, procedures, referring, communicating with other health child care assistant, indepentently interpreting results, counseling the patient and care coordination
[2025-04-04] MEDS: Calcium 600mg/Vit D 200U TAB 1 TAB PO ×2 (15:46→20:45)
[2025-04-04 18:41] LABS: Glucose Negative (Negative)
[2025-04-04 18:50] LABS: C & S Indicated? No; RBC >50 HPF (0-2)
[2025-04-04] MEDS: Calcitriol 0.25 MCG CAP 0.5 MCG PO (20:45)
[2025-04-04] MEDS: Normal Saline Flush 10 ML SYR IVP (20:45)
[2025-04-04 21:00] LABS: ALT 48 U/L (16-63); AST 100 U/L (15-37); Albumin 4.1 g/dL (3.4-5.0); Alkaline Phosphatase 68 U/L (46-116); Anion Gap 13.7 mmol/L (3-11); BUN 23 mg/dL (7-18); Bilirubin, Total 1.0 mg/dL (0.2-1.0); CO2 30.3 mmol/L (21.0-32.0); Calcium 7.0 mg/dL (8.5-10.1); Chloride 101 mmol/L (98-107); Glucose 88 mg/dL (74-106); Potassium 3.3 mmol/L (3.5-5.1); Sodium 145 mmol/L (136-145); Total Protein 8.2 g/dL (6.4-8.2)
[2025-04-04] MEDS: amLODIPine 5 MG TAB PO (21:48)
[2025-04-05] VITALS (32 sets, daily range): BP systolic 145–192; BP diastolic 98–133; PULSE 47–95; RESP 9–27; O2SAT 50–99
--- NOTE | 2025-04-05 | DI.CT_ITS ---
Exam(s) CT NECK W EXAM: CT NECK W INDICATION: upper airway obstructive symptoms. COMPARISON: No exams were available for comparison TECHNIQUE: Intravenous contrast: Omnipaque 350-100 cc FINDINGS: VISUALIZED PARANASAL SINUSES: Unremarkable. NASOPHARYNX: Unremarkable ORODENTAL: Unremarkable. OROPHARYNX: Unremarkable. No masses evident. HYPOPHARYNX: Unremarkable. Valleculae and epiglottis and aryepiglottic folds appear normal. VOCAL CORDS: Unremarkable. No masses evident. Subglottic airway appears unremarkable. THYROID GLAND: Diminutive There is an abnormal enhancing sub platysmal midline non-cystic mass anterior to the focal cords measuring 2.4 cm AP x 3 cm wide by 4.3 cm craniocaudal. It does not appear to be significantly compressing the airway SALIVARY GLANDS: Unremarkable. No significant findings in the parotid and submandibular glands. LYMPH NODES: There is no adenopathy evident in the neck and supraclavicular regions. OTHER: Incidentally noted is symmetrical heavy calcification in both cerebellar hemispheres and both basal ganglia. There is no ventriculomegaly. VISUALIZED LUNG APICES: No significant findings. IMPRESSION: 1. There is a 2.4 x 3.0 x 4.3 cm non-cystic enhancing midline mass anterior to the larynx. There is no associated lymphadenopathy. This finding requires further investigation. Including ENT consultation. 2. The thyroid gland lobes are diminutive. Preliminary virtual Radiology report was reviewed. Called by myself to ICU nurse practitioner 04/05/2025 at 4:50 p.m. RADIATION DOSE DELIVERED: 546.22mGy.cm Total DLP DATA REPOSITORY: All CT scans at this facility are submitted to the National Radiology Data Registry (NRDR) Dose Index Registry (DIR) with the [employer] ([employer]). RADIATION OPTIMIZATION: All CT scans at this facility use at least one of these dose optimization techniques: automated exposure control; mA and/or kV adjustment per patient size (includes targeted exams where dose is matched to clinical indication); or iterative reconstruction.
--- NOTE | 2025-04-05 02:28 | RESPIRATORY ---
0045: Called due to desaturating below 40's while sleeping despite being on Oxymask at 3 L O2 likely from undiagnosed sleep apnea because it's occurring at deep sleeping. NIV attempted on patient. Pt. did not tolerate NIV, tried CPAP mode then BiPAP, patient did not tolerate any of these modes. Pt. complained felt like someone choking him with CPAP mask and suffocating/anxiety. NIV machine standby at bedside. SpO2 desaturates below 40 while sleeping then recovers without exceeding 15-20 seconds of apeneic breathing while RT observed patient and RN aware as well at bedside. Due to pt. refusal to NIV, pt. remained on Oxymask at 4L Of O2.
[2025-04-05] MEDS: Levothyroxine 150 MCG TAB PO (06:24)
[2025-04-05 07:03] LABS: ALT 47 U/L (16-63); AST 92 U/L (15-37); Albumin 4.2 g/dL (3.4-5.0); Alkaline Phosphatase 76 U/L (46-116); Anion Gap 13.4 mmol/L (3-11); BUN 19 mg/dL (7-18); Bilirubin, Total 1.1 mg/dL (0.2-1.0); CO2 29.6 mmol/L (21.0-32.0); Calcium 8.6 mg/dL (8.5-10.1); Chloride 99 mmol/L (98-107); Glucose 96 mg/dL (74-106); Potassium 3.1 mmol/L (3.5-5.1); Sodium 142 mmol/L (136-145); Total Protein 8.6 g/dL (6.4-8.2)
[2025-04-05 07:27] LABS: Magnesium 2.0 mg/dL (1.8-2.4)
[2025-04-05] MEDS: Calcitriol 0.25 MCG CAP 0.5 MCG PO (07:30)
[2025-04-05] MEDS: Calcium 600mg/Vit D 200U TAB 1 TAB PO (07:30)
[2025-04-05] MEDS: Normal Saline Flush 10 ML SYR IVP ×2 (07:31→13:41)
[2025-04-05 07:53] LABS: Vitamin D 25 Total 21 ng/mL (30-100)
[2025-04-05] MEDS: amLODIPine 5 MG TAB PO (08:13)
[2025-04-05] MEDS: Lisinopril 10 MG TAB PO (08:13)
--- NOTE | 2025-04-05 08:51 | INITIAL_ITS ---
Date of service: 04/05/25 Time of Service: 08:51 Care Management Initial Assmt Initial Assessment Reason for Hospitalization: hypocalcemia Functional Status/Living Situation Patient Presentation: Randy was sitting up in bed when CM met with him. He was pleasant in interaction but appeared quite anxious. He informed CM several times that he does not like to be confined and is not doing well hooked up to telemetry and SCDs and IVs. He stated he needs to be able to get up and move around. Ayaan was admitted with acute hypocalcemia with his calcium being 6.0, 6.1 and 5.9 on serial testing. He also has a prolonged QTc. Randy lives in a mobile home in [place] with his Mom and step dad. He has a brother and a sister who both live in [place]. He has not worked since the pandemic but prior to that worked in the [employer] industry in several establishments such as [employer] and [employer]. He shared that he has been trying to get disability but has difficulty connecting with anyone that can help him. Randy is independent with ADLs but does not drive. Town of Residence: [place] Resides with: Parent Significant Other/Family: Local (parents local, siblings out of state) Natural Supports: parents Employment Status: Unemployed Instrumental Activities of Daily Living (ADLs): Independent and Requires support with Media Job [employer], Groceries, Heat/Utilities and Transportation Medications Medication Management: No Issues/Barriers identified Physical Functioning/Mobility Assistive Device: none Advance Directives Advance Directives: Do you have an Advance Directive: N , 07:53 AD On File at [facility]: N 09/04/12, 15:40 Date Asked 04/04/25 04/04/25, 10:20 AD Date Reviewed COLST On File at [facility] COLST Date Scanned Code Status Resuscitation Status Full Code Portal Pt does not currently have a portal and education provided: Yes Insurance Coverage/Financial Issues Insurance: [place] Medicaid Care Team Visit Care Team Role Provider Type Gilmar Argueta MD Primary Care Provider NON-[facility] STAFF PH YSICIAN Ingrid Zamora MD Emergency Provider [facility] STAFF PHYSICIAN Kristian Hamilton Admit Provider [facility] STAFF PHYSICIAN Attending Provider Discharge Potential Discharge Needs: PCP F/U Appt Anticipated Barriers to Discharge: None Identified Patient/Family Education Needs: Review discharge instructions, discuss Ask Me Three Transportation: Private vehicle Plan: Anticipate Randy will be discharged home with no new services when medically cleared. He will follow up with his PCP and plan of care and transport with family. CM will follow and continue to assess for discharge concerns. Social Determinants of Health Screening Social Determinants of health last assessed in clinic: 04/05/25 Will the Patient Participate in the Screening?: Yes Do you worry about having a steady place to live?: no Problems where you live: no known problems In the past 12 months, have you had to go without electric, gas, oil or water in your home?: no 1. Within the past 12 months, we worried whether our food would run out before we got money to buy more.: Never true 2. Within the past 12 months, the food we bought just didn't last and we didn't have money to get more.: Never true Has lack of transportation kept you from medical appointments or from doing things needed for daily living?: no Has anyone in your life made you feel unsafe or unsupported?: no How hard is it for you to pay for the very basics like food, housing, medical care, and heating? Would you say it is:: Somewhat hard Do you want help finding or keeping work or a job?: I do not need or want help If for any reason you need help with day-to-day activities such as bathing, preparing meals, shopping, managing finances, etc., do you get the help you need?: I don’t need any help How often do you feel lonely or isolated from those around you?: Never Do you speak a language other than Italian at home?: No Does the patient want assistance with any of the above?: No Health Related Social Needs Health related social needs: problems related to housing/economic circumstances (Z59.89) Health related social needs details: n/a PFSH All Active Problems (Updated 04/04/25 @ 15:58 by Kristian Hamilton) Elevated transaminase level (Acute) Hypokalemia (Acute) Hypothyroidism (Chronic) Hypomagnesemia (Acute) Stage 3a chronic kidney disease (Acute) Ankle pain (Acute) Gout (Acute) Hypocalcemia (Acute) Prolonged QT interval (Acute) Medical History Disorder of thyroid gland Surgical History Thyroid thyroid removed when he was 14. Social History Smoking/Tobacco Use Status: Never Smoking risk assessment performed?: Yes Alcohol Intake: never Drug use: Never Housing: other Do you feel safe at home: Yes Do you feel safe in your relationship?: Yes Additional Social history: lives with his parents in [place]. Not currently working
[2025-04-05] MEDS: Potassium Chloride 20 MEQ TABCR 40 MEQ PO (08:54)
[2025-04-05] MEDS: Lisinopril 10 MG TAB 20 MG PO (08:57)
[2025-04-05] MEDS: Ergocalciferol 50000 UNITS CAP PO (09:00)
[2025-04-05] MEDS: aMILoride HCL 5 MG TAB PO (10:55)
[2025-04-05] MEDS: Omnipaque 350 MG/ML 100 ML BTL IJ (13:40)
[2025-04-05] MEDS: Normal Saline - Diluent 50 ML VIAL IJ (13:41)
[2025-04-05 14:30] LABS: Anion Gap 10.9 mmol/L (3-11); BUN 21 mg/dL (7-18); CO2 30.1 mmol/L (21.0-32.0); Calcium 9.3 mg/dL (8.5-10.1); Chloride 95 mmol/L (98-107); Glucose 85 mg/dL (74-106); Potassium 3.8 mmol/L (3.5-5.1); Sodium 136 mmol/L (136-145)
--- NOTE | 2025-04-05 14:45 | DI.VRAD_ITS ---
PROCEDURE INFORMATION: Exam: CT Neck With Contrast Exam date and time: 04/05/2025 1:42 PM Age: 39 years old Clinical indication: Other: Upper airway obstruction TECHNIQUE: Imaging protocol: Computed tomography of the neck with contrast. Contrast material: OMNI 350; Contrast volume: 100 ml; Contrast route: INTRAVENOUS (IV); COMPARISON: CR XR CHEST 2V PA LATERAL 04/04/2025 10:51 AM FINDINGS: Brain: Symmetric parenchymal calcifications involving both cerebellar hemispheres and basal ganglia Salivary glands: Normal. Glands are normal in size. Pharynx: Unremarkable. No significant tonsillar enlargement. Larynx: Unremarkable. Epiglottis is normal. Thyroid: Normal. No enlarged or calcified nodules. Trachea: Visualized trachea is unremarkable. Lungs: Unremarkable as visualized. Lymph nodes: Unremarkable. No lymphadenopathy. Bones/joints: Unremarkable. No acute fracture. Soft tissues: Unremarkable. No significant soft tissue swelling. IMPRESSION: Normal CT soft tissue neck. Dictated and Authenticated by: Nguyễn Rod MD. Orderin Joy Townsend MD
--- NOTE | 2025-04-05 15:30 | W.PM.DS.N ---
Date of service: 04/05/25 Time of Service: 15:30 DS: Diagnosis Discharge Diagnosis (1) Hypocalcemia: Status: Acute (2) Hypokalemia: Status: Acute (3) Prolonged QT interval: Status: Acute (4) Stage 3a chronic kidney disease: Status: Acute (5) Hypothyroidism: Status: Chronic (6) Elevated transaminase level: Status: Acute Discharge Plan Disposition Patient Disposition: Home Condition: Improving Discharge Details Reason For Visit: Severe Hypocalcemia, Long QTc, Hypothyroidism Admit Date/Time: 04/04/25 13:51 Admit Provider: Kristian Hamilton Attending Provider: Kristian Hamilton Primary Care Provider: Gilmar Argueta [facility] Hospital Course: 39 yo M with stage 3a CKD, surgical hypothyroid and hypoparathyroidism who was sent by endocrinology after his labs showed severe hypocalcemia and TSH about 200. Repeat calcium remained in severe range, though free thyroxine was low normal. He knows his medications but he does miss some doses especially in the past week when he has had flu-like illness that he is now recovering from. Evaluation in the ED revealed a prolonged QTc and calciums of 6.0 and 5.9, so the decision was made to admit to ICU for calcium infusion. Low potassium and magnesium were also replaced. The calcium infusion stopped at 11am on 04/05 and 2pm labs showed calcium still in normal range. His QTc normalized as well. Vitamin D was low and high dose supplementation was given. This should be continued for 12 weeks. PTH level was also sent out. His blood pressure remained high up to 180/120. He was quite anxious. Given the low potassium, plasma renin activity and aldosterone levels were sent out on the morning of discharge (drawn at 8:30am). We gave him a dose of amiloride but this was not continued as an outpatient. His lisinopril was doubled to 20mg. The PRA/aldosterone should be interpreted in the light of chronic AMARILIS inhibitor therapy. He had severe snoring and was profoundly hypoxic while sleeping. Given his voice had a fullness in the throat and severe sleep apnea, a CT neck was done to make sure there was no physical upper airway obstruction. He should be evaluated by sleep medicine as an outpatient. Incretin-based therapy should also be considered if he doesn't tolerate traditional treatment. Adherence to his medical regimen was emphasized. In his history his TSH fluctuates from low to high, which can only be explained by inconsistent adherence in a patient who is s/p thyroidectomy. This was discussed with his mom as well. He should follow up with PCP within the week after labs are done labs. He has an appointment with Recommendations for Follow Up Recommended tests to be ordered by follow up provider: BMP, Mg 3-4 days Home Meds and New Rx's Prescriptions: New ergocalciferol (vitamin D2) [Vitamin D2] 1,250 mcg (50,000 unit) Capsule 1,250 mcg PO Q7D 91 Days Qty: 12 0RF Continued levothyroxine 300 mcg tablet 150 mcg PO DAILY Patient Comments: TAKE ONE TABLET BY MOUTH EVERY DAY ON AN EMPTY STOMACH calcium carbonate-vitamin D3 600 mg-5 mcg (200 unit) Tablet 1 tab PO TID Qty: 0 0RF calcitriol 0.25 mcg Capsule 0.5 mcg PO BID Changed lisinopril 10 mg tablet 20 mg PO DAILY Qty: 0 0RF Discontinued ibuprofen 800 MG tablet 800 mg PO TID Qty: 60 0RF Discharge Instructions Instructions: Hypoparathyroidism Additional Instructions: It is very important that you take all of your medications as prescribed at the prescribed time, especially the thyroid hormone and calcium/vitamin D. Your vitamin D was low. You should take the high dose supplement weekly for 12 weeks along with the regular calcium/vitamin D supplement Your blood pressure is running too high. You should double the lisinopril to 20mg per day (2 10mg tablets). You may benefit from another medication like eplerenone or amlioride. Your PCP may decide on this based on the lab tests we sent. Referrals: Cameron Barnard [ NON-[facility] STAFF PHYSICIAN, Medicine] Referral Note: send to [facility] endocrinology [facility] [address] Activity:: Activity as Tolerated Equipment/Supplies:: No Equipment Needed Diet:: As Tolerated Discharge Orders Discharge Orders: Discharge Order (Routine); Ordered 04/05/25 Ordered By: Kristian Hamilton DS: Summary Time Spent with Patient providing and/or coordinating discharge services: Greater than 30 minutes Status at Discharge Functional status at discharge: independent ambulation Overall status at discharge: patient is back to baseline Mental Status: mental status grossly normal Speech and Movement: speech and movement normal Mood: congruent mood Affect: normal affect Quality:SDOH Health Related Social Needs: Health related social needs house/econ circumstance Health related social needs details n/a Health related social needs details: n/a Exam Narrative Exam Narrative: GEN: Alert and oriented x 4. No acute distress at rest. Voice sounds congested with fullness in throat but intelligible. LUNGS: CTAB with normal effort CV: RRR with no murmurs, gallops, or rubs. ABD: active bowel sounds, soft, nontender and nondistended. No masses. EXT: no cyanosis, clubbing. Trace ankle edema NEURO: No jaw contracture with tapping on facial nerve. No contracture of arm with BP cuff. No tremor Psych Mental Status: mental status grossly normal Speech and Movement: speech and movement normal Mood: congruent mood Affect: normal affect DS: Data Vitals/I&O Vitals and I&O: Vital Signs Temperature 36.2 C L 04/04/25 16:29 Temperature Source Temporal Artery Scan 04/04/25 16:29 Pulse 90 04/05/25 14:08 Pulse 90 04/05/25 14:08 Respiratory Rate 15 04/05/25 14:08 Respiratory Effort Normal 04/04/25 10:12 Respiratory Depth Normal 04/04/25 10:12 Respiratory Pattern Normal 04/04/25 10:12 Blood Pressure 157/114 H 04/05/25 14:08 Blood Pressure Mean 127 04/05/25 14:08 Pulse Oximetry 95 04/05/25 14:08 Oxygen Delivery Method Room Air 04/05/25 14:42 Oxygen Flow Rate 0 04/05/25 14:42 Pain Level 3 04/04/25 10:12 Intake & Output 04/04/25 04/05/25 04/05/25 23:59 11:59 23:59 Intake Total 350 / 350 1240 / 1240 Output Total 950 / 950 1500 / 1500 Balance -600 / -600 -260 / -260 Weight 133.5 kg Intake: IV 100 / 100 1000 / 1000 Oral 250 / 250 240 / 240 Output: Urine 950 / 950 1500 / 1500 Other: Urine Color Yellow Yellow Urine Appearance Clear Clear Urine Odor Normal Normal Strong Comment Pt thinks lack of voiding is anxiety based, this RN states she will give him a little while with the curtain closed to see if he can void. patient bed sheets and chucks wet from urine, it appears that the patient spills urine while using urinal. Linens changed while patient on the CT scanning bed. Data Completed and Pending Pending Labs at Discharge: 04/04/25 04/04/25 04/04/25 10:17 10:24 13:05 WBC 9.79 RBC 4.01 L Hgb 12.2 L Hct 36.7 L MCV 92 MCH 30.4 MCHC 33.2 RDW 12.6 Plt Count 223 MPV 10.5 Immature Gran % 0.4 Neutrophils % 70.0 Lymphocytes % 21.7 Monocytes % 5.6 Eosinophils % 1.5 Basophils % 0.8 Nucleated RBC % 0.0 Absolute Neutrophils 6.85 H Absolute Lymphocytes 2.12 Absolute Monocytes 0.55 Absolute Eosinophils 0.15 Absolute Basophils 0.08 VBG pH 7.43 H VBG pCO2 44 VBG pO2 55 VBG HCO3 30 H VBG Total CO2 27 VBG O2 Saturation 89 VBG Base Excess 5 H VBG Lactate 1.0 Sodium 143 144 Potassium 3.3 L 3.0 L Chloride 99 100 Carbon Dioxide 29.3 31.1 Anion Gap 14.7 H 12.9 H BUN 27 H 26 H Creatinine 2.0 H 1.8 H Est GFR (CKD-EPI 2020) 42.47 48.20 Glucose 94 84 Calcium 6.1 L* 5.9 L* Magnesium 2.0 Total Bilirubin 1.0 AST 116 H ALT 55 Alkaline Phosphatase 74 NT-Pro-B Natriuret Pep 348 H Total Protein 8.8 H Albumin 4.4 Renin Activity Aldosterone 25-OH Vitamin D Total TSH 208.91 H Free T4 0.86 PTH Intact Urine Color Urine Clarity Urine pH Ur Specific [place] Urine Protein Urine Ketones Urine Blood Urine Nitrite Urine Bilirubin Urine Urobilinogen Ur Leukocyte Esterase Urine RBC Urine WBC Ur Epithelial Cells Urine Crystals Urine Bacteria Urine Casts Urine Mucus Ur Culture Indicated? Urine Glucose COVID-19 Source Nasopharynx SARS-CoV-2 (PCR) Negative Influenza Type A (PCR) Negative Influenza Type B (PCR) Negative RSV (PCR) Negative 04/04/25 04/04/25 04/05/25 18:23 20:30 05:42 WBC RBC Hgb Hct MCV MCH MCHC RDW Plt Count MPV Immature Gran % Neutrophils % Lymphocytes % Monocytes % Eosinophils % Basophils % Nucleated RBC % Absolute Neutrophils Absolute Lymphocytes Absolute Monocytes Absolute Eosinophils Absolute Basophils VBG pH VBG pCO2 VBG pO2 VBG HCO3 VBG Total CO2 VBG O2 Saturation VBG Base Excess VBG Lactate Sodium 145 142 Potassium 3.3 L 3.1 L Chloride 101 99 Carbon Dioxide 30.3 29.6 Anion Gap 13.7 H 13.4 H BUN 23 H 19 H Creatinine 1.6 H 1.4 H Est GFR (CKD-EPI 2020) 55.51 65.16 Glucose 88 96 Calcium 7.0 L 8.6 Magnesium 2.0 Total Bilirubin 1.0 1.1 H AST 100 H 92 H ALT 48 47 Alkaline Phosphatase 68 76 NT-Pro-B Natriuret Pep Total Protein 8.2 8.6 H Albumin 4.1 4.2 Renin Activity Aldosterone 25-OH Vitamin D Total 21 L TSH Free T4 PTH Intact Pending Urine Color Yellow Urine Clarity Clear Urine pH 6.0 Ur Specific [place] 1.015 Urine Protein 30 H Urine Ketones Negative Urine Blood Moderate H Urine Nitrite Negative Urine Bilirubin Negative Urine Urobilinogen 0.2 Ur Leukocyte Esterase Negative Urine RBC >50 H Urine WBC 5-10 Ur Epithelial Cells Rare Urine Crystals Negative Urine Bacteria Many Urine Casts Negative Urine Mucus Trace Ur Culture Indicated? No Urine Glucose Negative COVID-19 Source SARS-CoV-2 (PCR) Influenza Type A (PCR) Influenza Type B (PCR) RSV (PCR) 04/05/25 04/05/25 08:37 14:07 WBC RBC Hgb Hct MCV MCH MCHC RDW Plt Count MPV Immature Gran % Neutrophils % Lymphocytes % Monocytes % Eosinophils % Basophils % Nucleated RBC % Absolute Neutrophils Absolute Lymphocytes Absolute Monocytes Absolute Eosinophils Absolute Basophils VBG pH VBG pCO2 VBG pO2 VBG HCO3 VBG Total CO2 VBG O2 Saturation VBG Base Excess VBG Lactate Sodium 136 Potassium 3.8 Chloride 95 L Carbon Dioxide 30.1 Anion Gap 10.9 BUN 21 H Creatinine 1.5 H Est GFR (CKD-EPI 2020) 59.98 Glucose 85 Calcium 9.3 Magnesium Total Bilirubin AST ALT Alkaline Phosphatase NT-Pro-B Natriuret Pep Total Protein Albumin Renin Activity Pending Aldosterone Pending 25-OH Vitamin D Total TSH Free T4 PTH Intact Urine Color Urine Clarity Urine pH Ur Specific [place] Urine Protein Urine Ketones Urine Blood Urine Nitrite Urine Bilirubin Urine Urobilinogen Ur Leukocyte Esterase Urine RBC Urine WBC Ur Epithelial Cells Urine Crystals Urine Bacteria Urine Casts Urine Mucus Ur Culture Indicated? Urine Glucose COVID-19 Source SARS-CoV-2 (PCR) Influenza Type A (PCR) Influenza Type B (PCR) RSV (PCR) PFSH All Active Problems (Updated 04/05/25 @ 15:12 by Kristian Hamilton) Elevated transaminase level (Acute) Hypokalemia (Acute) Hypothyroidism (Chronic) Hypomagnesemia (Acute) Stage 3a chronic kidney disease (Acute) Prolonged QT interval (Acute) Hypocalcemia (Acute) Gout (Acute) Ankle pain (Acute) Medical History Disorder of thyroid gland Surgical History Thyroid thyroid removed when he was 14. Social History Smoking/Tobacco Use Status: Never Smoking risk assessment performed?: Yes Alcohol Intake: never Drug use: Never Housing: other Do you feel safe at home: Yes Do you feel safe in your relationship?: Yes Additional Social history: lives with his parents in [place]. Not currently working Time Spent with Patient Time Spent with Patient: 45-69 minutes Time was spent: preparing to see the patient(eg.review tests), obtaining and/or reviewing separately otained hiistory, ordering medications,tests, procedures, referring, communicating with other health pharmacy customer care specialist, indepentently interpreting results, counseling the patient and care coordination
[2025-04-09 14:44] LABS: Renin Activity, Plasma 3.4 ng/mL/h
== END 2025-04-05 15:45 | disposition home or self-care (01) | DRG 644 ==
LOC: ER 14:57 → ICU 15:11
PROVIDERS: Family Medicine; Admitting Provider Family Medicine; Emergency Provider Emergency Medicine; PCP Family Medicine; Responsible Provider Family Medicine; Visit Provider Family Medicine
DX: E89.2 Postprocedural hypoparathyroidism (principal); E66.2 Morbid (severe) obesity with alveolar hypoventilation; Z68.41 Body mass index [BMI] 40.0-44.9, adult; E87.6 Hypokalemia; R94.31 Abnormal electrocardiogram [ECG] [EKG]; N18.31 Chronic kidney disease, stage 3a; E89.0 Postprocedural hypothyroidism; Z79.899 Other long term (current) drug therapy; M10.9 Gout, unspecified; R06.83 Snoring; R09.02 Hypoxemia; E55.9 Vitamin D deficiency, unspecified; R22.1 Localized swelling, mass and lump, neck; R74.01 Elevation of levels of liver transaminase levels
CPT/HCPCS: 00123; 36415; 70491; 80048; 80053; 82306; 82805; 87637; 93005; 96374; 99285; 71046; 81003; 81015; 82088; 83605; 83735; 83880; 83970; 84244; 84439; 84443; 85025; 93010; 99222; 99239; J0612; J3480; J3490

== ENCOUNTER 2025-04-04 10:40 | Outpatient (CLI) | payer MEDICAID, SELFPAY ==
[2025-04-04 08:04] LABS: ALT 52 U/L (16-63); AST 108 U/L (15-37); Albumin 4.4 g/dL (3.4-5.0); Alkaline Phosphatase 71 U/L (46-116); Anion Gap 13.2 mmol/L (3-11); BUN 27 mg/dL (7-18); Bilirubin, Total 1.0 mg/dL (0.2-1.0); CO2 30.8 mmol/L (21.0-32.0); Chloride 98 mmol/L (98-107); Glucose 100 mg/dL (74-106); Potassium 3.4 mmol/L (3.5-5.1); Sodium 142 mmol/L (136-145); Total Protein 8.5 g/dL (6.4-8.2)
[2025-04-04 08:18] LABS: Calcium 6.0 mg/dL (8.5-10.1)
== END 2025-04-04 10:41 | disposition home or self-care (01) ==
LOC: LBO 10:40
PROVIDERS: PCP Family Medicine; Visit Provider Internal Medicine Endocrinology, Diabetes & Metabolism
DX: E89.2 Postprocedural hypoparathyroidism (principal)
CPT/HCPCS: 36415; 80053

== ENCOUNTER 2025-04-05 20:02 | Observation (INO) | payer MEDICAID, SELFPAY ==
[2025-04-05] VITALS (19 sets, daily range): BP systolic 126; BP diastolic 91; PULSE 75–104; RESP 8–16; TEMP 36.2; O2SAT 90–98
--- NOTE | 2025-04-05 19:54 | W.PM.HP.N ---
Date of service: 04/05/25 Time of Service: 19:54 Assessment and Plan Assessment and plan (1) Neck mass: Start date: 04/05/25 Status: Acute Assessment and plan: This is a 39-year-old gentleman just discharged today returning because of abnormal CT of the neck which had a missed read at discharge. He does have nighttime hypoxemia which may be associated with the mass near the trachea. Patient did not tolerate positive pressure treatment for his hypoxemia while hospitalized and this may be reevaluated. He will be observed for oxygen deficits during sleep with plans for ENT consultation as soon as available. He is a full code. (2) Hypoxemia associated with sleep: Start date: 04/05/25 Status: Acute Assessment and plan: Monitor especially during sleep with positive pressure treatment if tolerated. ENT referral may help with a new mass over the trachea which may be compressing especially when supine. (3) Hypocalcemia: Status: Chronic Assessment and plan: Stable back on supplement status post hospitalization with IV repletion. Continue oral supplement. (4) Hypokalemia: Status: Acute Assessment and plan: Chronic and slightly worse but not on supplement. Follow-up in the morning and if persists oral potassium supplement should be given with monitoring. He is on lisinopril. (5) Hypomagnesemia: Status: Chronic Assessment and plan: Stable with supplement. Continue to monitor. (6) Hypothyroidism: Status: Chronic Assessment and plan: Markedly elevated TSH with adjustment of levothyroxine ongoing. Patient need to be compliant for accurate adjustment. (7) Stage 3a chronic kidney disease: Status: Chronic Assessment and plan: This appears stable. Monitor clinically and with lab trending. History of Present Illness History of Present Illness Chief Complaint: Abnormal CT of the neck with neck mass, hypoxemia at night Narrative: This is a 39-year-old male patient with recent hospitalization for severe hypocalcemia and elevated TSH needing IV calcium replacement. He has been somewhat noncompliant with his medical therapy status post thyroidectomy with parathyroid gland removal during the procedure. He does see endocrinology at [facility]. He was having hypoxemia at night which was brief dropping into 30% range but only for seconds and seem to be positional. He did have a 15 pound weight gain in the recent past. He could not tolerate CPAP or BiPAP when he was in the hospital last during these episodes. CT of the head and neck was performed with reading of no abnormalities prior to discharge but we read did reveal a 2 x 3 x 4 cm noncystic mass anterior to the trachea. This may be contributing to his hypoxemia. The patient was prompted to return to the hospital for further evaluation and probable ENT consultation when available. When I saw the patient he was in no respiratory distress sitting up in bed with some slight dysarthria which I think may be chronic. He did have a slight rattle to his cough according to the nurse. The patient was directly admitted and will be observed closely overnight for hypoxemia with positive pressure treatment if needed and tolerated. He is a full code. Review of Systems Narrative: 13 point review of systems otherwise unrevealing or stable. PFSH All Active Problems (Updated 04/06/25 @ 07:39 by Cameron Perdomo) Hypokalemia (Acute) Hypoxemia associated with sleep (Acute) Neck mass (Acute) Elevated transaminase level (Acute) Hypothyroidism (Chronic) Hypomagnesemia (Chronic) Stage 3a chronic kidney disease (Chronic) Ankle pain (Acute) Gout (Acute) Hypocalcemia (Chronic) Medical History Disorder of thyroid gland Surgical History Thyroid thyroid removed when he was 14. Social History Smoking/Tobacco Use Status: Never Smoking risk assessment performed?: Yes Alcohol Intake: never Drug use: Never Housing: house Do you feel safe at home: Yes Do you feel safe in your relationship?: Yes Additional Social history: lives with his parents in [place]. Not currently working Meds Allergies and Home Medications Allergies Allergy/AdvReac Type Severity Reaction Status Date / Time bee venom protein (honey bee) Allergy Anaphylaxis Unverified 04/04/25 10:06 bassam Allergy Anaphylaxis Unverified 04/04/25 10:06 Home Medications Medication Instructions Recorded Confirmed Type levothyroxine 300 mcg tablet 150 mcg PO DAILY 12/10/21 04/04/25 History calcium 600 mg (as 1 tab PO TID #0 tabs 12/11/21 04/04/25 Rx carbonate)-vitamin D3 5 mcg (200 unit) tablet calcitriol 0.25 mcg capsule 0.5 mcg PO BID 04/17/23 04/04/25 History ergocalciferol (vitamin D2) 1,250 1,250 mcg PO Q7D 91 days #12 caps 04/05/25 Rx mcg (50,000 unit) capsule (Vitamin D2) lisinopril 10 mg tablet 20 mg (2 x 10 mg) PO DAILY #0 tabs 04/05/25 04/04/25 Rx Exam Narrative Exam Narrative: General: Patient is moderately obese, alert and oriented x 3 and in no acute distress. He does have slight dysarthric speech and atypical facies. HEENT: Normocephalic, atypical facies as mentioned, eyes with pupils equal and reactive light symmetric, extraocular movement tact and sclera anicteric. Oropharynx with moist mucosa and good dentition. Neck: Generous that in his neck but no discrete palpable mass with palpation over the thyroid area. No palpable lymphadenopathy. Supple without JVD. Back: Normal posture with no CVA tenderness. Lungs: Fair aeration and clear to auscultation and percussion. No upper airway noises, rhonchi or expiratory wheeze. Heart: Regular in rhythm with no murmurs or gallop appreciated. Abdomen: Obese contour, soft and nontender to palpation no palpable hepatosplenomegaly. Bowel sounds positive in all quadrants. Genitalia/rectal: Exam deferred. Extremities: Without clubbing, cyanosis or pitting edema. Peripheral pulse intact. Skin: Normal color, warm and dry. Neuro: Cranial nerves II through XII gross intact, no focalized motor deficits and no tremor. Normal muscle tone with no tetany. Speech is somewhat dysarthric but this may be baseline. Psych: Normal affect and mood. No abnormal thought processes. Patient does appear to have slowed mentation compared to chronological age. Remote and recent memory intact. Results Imaging Imaging Studies: EXAM: CT NECK W Date of exam: 04/05/2025 INDICATION: upper airway obstructive symptoms. COMPARISON: No exams were available for comparison TECHNIQUE: Intravenous contrast: Omnipaque 350-100 cc FINDINGS: VISUALIZED PARANASAL SINUSES: Unremarkable. NASOPHARYNX: Unremarkable ORODENTAL: Unremarkable. OROPHARYNX: Unremarkable. No masses evident. HYPOPHARYNX: Unremarkable. Valleculae and epiglottis and aryepiglottic folds appear normal. VOCAL CORDS: Unremarkable. No masses evident. Subglottic airway appears unremarkable. THYROID GLAND: Diminutive There is an abnormal enhancing sub platysmal midline non-cystic mass anterior to the focal cords measuring 2.4 cm AP x 3 cm wide by 4.3 cm craniocaudal. It does not appear to be significantly compressing the airway SALIVARY GLANDS: Unremarkable. No significant findings in the parotid and submandibular glands. LYMPH NODES: There is no adenopathy evident in the neck and supraclavicular regions. OTHER: Incidentally noted is symmetrical heavy calcification in both cerebellar hemispheres and both basal ganglia. There is no ventriculomegaly. VISUALIZED LUNG APICES: No significant findings. IMPRESSION: 1. There is a 2.4 x 3.0 x 4.3 cm non-cystic enhancing midline mass anterior to the larynx. There is no associated lymphadenopathy. This finding requires further investigation. Including ENT consultation. 2. The thyroid gland lobes are diminutive. Labs 04/06/25 05:40 04/06/25 05:40 Time Spent Time spent with Patient: >75 minutes Time was spent: preparing to see the patient(eg.review tests), obtaining and/or reviewing separately otained hiistory, ordering medications,tests, procedures, referring, communicating with other health director of primary care, indepentently interpreting results and care coordination
[2025-04-06] VITALS (148 sets, daily range): BP systolic 116–151; BP diastolic 67–103; PULSE 56–102; RESP 0–44; O2SAT 29–99
[2025-04-06 06:35] LABS: HCT 38.3 % (40.0-50.0); HGB 12.7 g/dL (13.5-17.5); MCH 31.0 pg (27.0-33.0); MCHC 33.2 % (32.0-36.0); MCV 93 fL (80-95); MPV 11.1 fL (8.0-11.0); Platelet Count 253 10^3/uL (130-400); RBC 4.10 10^6/uL (4.36-5.78); RDW 12.6 % (11.8-14.1); RDW-SD 43.4 fL; WBC 11.92 10^3/uL (4.4-10.8)
[2025-04-06 07:16] LABS: ALT 46 U/L (16-63); AST 83 U/L (15-37); Albumin 4.2 g/dL (3.4-5.0); Alkaline Phosphatase 76 U/L (46-116); Anion Gap 14.2 mmol/L (3-11); BUN 37 mg/dL (7-18); Bilirubin, Total 0.7 mg/dL (0.2-1.0); CO2 28.8 mmol/L (21.0-32.0); Calcium 8.7 mg/dL (8.5-10.1); Chloride 99 mmol/L (98-107); Glucose 91 mg/dL (74-106); Magnesium 2.2 mg/dL (1.8-2.4); Potassium 3.4 mmol/L (3.5-5.1); Sodium 142 mmol/L (136-145); Total Protein 8.6 g/dL (6.4-8.2)
[2025-04-06] MEDS: Calcium 600mg/Vit D 200U TAB 1 TAB PO ×3 (07:46→19:21)
[2025-04-06] MEDS: Levothyroxine 150 MCG TAB PO (07:46)
[2025-04-06] MEDS: Lisinopril 10 MG TAB 20 MG PO (07:46)
[2025-04-06] MEDS: Enoxaparin 40 MG/0.4 ML SYR SC (07:46)
[2025-04-06] MEDS: Calcitriol 0.25 MCG CAP 0.5 MCG PO ×2 (07:46→19:21)
[2025-04-06] MEDS: Potassium Chloride 20 MEQ TABCR 40 MEQ PO (12:18)
--- NOTE | 2025-04-06 13:00 | PGE_ITS ---
Date of Service Date of service: 04/06/25 Time of Service: 13:01 Assessment and Plan Assessment and plan (1) Neck mass: Start date: 04/05/25 Status: Acute Assessment and plan: CT reviewed with ENT Dr. Kincaid at [facility]. She did not think this was obstructing the airway at all, but it does need an outpatient biopsy. 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 Recommending follow up with endocrine as outpatient. (2) Hypoxemia associated with sleep: Start date: 04/05/25 Status: Acute Assessment and plan: Not related to neck mass as above, likely undiagnosed GEREMIAS. He does not tolerate our BiPAP/CPAP He has profound hypoxia when trying to sleep, will do formal overnight oxymetry and try to get home oxygen until he can follow up with sleep clinic, check VBG in am. (3) Hypocalcemia: Status: Chronic Assessment and plan: Stable back on supplement status post hospitalization with IV repletion. Continue oral supplement, follow. (4) Hypokalemia: Status: Acute Assessment and plan: Chronic and slightly worse but not on supplement. replace orally now. (5) Hypothyroidism: Status: Chronic Assessment and plan: Markedly elevated TSH with adjustment of levothyroxine ongoing. Patient need to be compliant for accurate adjustment. (6) Stage 3a chronic kidney disease: Status: Chronic Assessment and plan: Cr up slightly, lisionopril dose was increased. Monitor in AM. (7) DVT prophylaxis: Status: Acute Assessment and plan: low risk, ambulating, use SCDs while in bed. Stop enoxaparin. Subjective Subjective Patient reports: no new complaints, tolerating a regular diet and voiding w/o difficulty; denies diarrhea, nausea, vomiting, shortness of breath or fever Interval history since last seen: Events: Requiring oxygen overnight, immediately O2 drops when sleeping. He feels fine. A little tired. No change in breathing. Exam Narrative Exam Narrative: GEN: Alert and oriented x 4. No acute distress at rest. Voice sounds congested with fullness in throat but intelligible. LUNGS: CTAB with normal effort CV: RRR with no murmurs, gallops, or rubs. ABD: active bowel sounds, soft, nontender and nondistended. No masses. EXT: no cyanosis, clubbing. Trace ankle edema NEURO: No contracture of arm with BP cuff. No tremor Objective Last Vital Signs Temp 36.2 C L 04/05/25 19:25 Pulse 75 04/06/25 11:40 Resp 11 L 04/06/25 11:40 BP 138/92 H 04/06/25 07:11 Pulse Ox 97 04/06/25 11:40 Laboratory Results - last 24 hr 04/06/25 05:40 WBC 11.92 H RBC 4.10 L Hgb 12.7 L Hct 38.3 L MCV 93 MCH 31.0 MCHC 33.2 RDW 12.6 Plt Count 253 MPV 11.1 H Sodium 142 Potassium 3.4 L Chloride 99 Carbon Dioxide 28.8 Anion Gap 14.2 H BUN 37 H Creatinine 2.0 H Est GFR (CKD-EPI 2020) 42.47 Glucose 91 Calcium 8.7 Magnesium 2.2 Total Bilirubin 0.7 AST 83 H ALT 46 Alkaline Phosphatase 76 Total Protein 8.6 H Albumin 4.2 Time Spent with Patient Time Spent with Patient: 35-49 minutes Time was spent: preparing to see the patient(eg.review tests), obtaining and/or reviewing separately otained hiistory, ordering medications,tests, procedures, referring, communicating with other health emergency care tech, indepentently interpreting results, counseling the patient and care coordination
--- NOTE | 2025-04-06 14:41 | INITIAL_ITS ---
Date of service: 04/06/25 Time of Service: 14:41 Care Management Initial Assmt Initial Assessment Reason for Hospitalization: neck mass Functional Status/Living Situation Patient Presentation: Randy was sitting up in bed wearing an Oxymask with 3 L/min of O2. He was alert and oriented and not very happy to be back. He informed CM that he was called back to the hospital last night after being discharged because of an unexpected finding on Xray. The report indicated that Randy had a mass on his anterior throat and there was concern that this was contributing to his nocturnal hypoxia. After consultation with [facility], it was felt that the mass was unrelated and they recommended that he have an overnight oximetry evaluation, which is planned for tonight. Randy hopes to be able to go home in the morning, likely with new oxygen. Additional testing can be done on an outpatient basis. Town of Residence: [place] Resides with: Parent (lives with parents) Significant Other/Family: Local (parents local, siblings out of state) Natural Supports: family Employment Status: Unemployed Instrumental Activities of Daily Living (ADLs): Independent (ADLs) and Requires support with Kinesiologist, Groceries, Heat/Utilities and Transportation Medications Medication Management: No Issues/Barriers identified Advance Directives Advance Directives: Do you have an Advance Directive: N , 07:53 AD On File at [facility]: N 09/04/12, 15:40 Date Asked 04/04/25 04/04/25, 10:20 AD Date Reviewed COLST On File at [facility] COLST Date Scanned Code Status Resuscitation Status Full Code Portal Pt does not currently have a portal and education provided: Yes Insurance Coverage/Financial Issues Insurance: [place] Medicaid Care Team Visit Care Team Role Provider Type Kristian Hamilton MD [facility] STAFF PHYSICIAN Gilmar Argueta MD Primary Care Provider NON-[facility] STAFF PHYSICIAN Francois Castano MD Other Providers [facility] STAFF PHYSICIAN Cameron Perdomo Admit Provider NON-[facility] STAFF PHYSICIAN Attending Provider Discharge Potential Discharge Needs: PCP F/U Appt Anticipated Barriers to Discharge: None Identified Patient/Family Education Needs: Review discharge instructions, discuss Ask Me Three Transportation: Private vehicle Plan: Anticipate Randy will be discharged home with no new services when medically cleared. He will follow up with his PCP and plan of care and transport with family. CM will follow and continue to assess for discharge concerns. Social Determinants of Health Screening Social Determinants of health last assessed in clinic: 04/06/25 Will the Patient Participate in the Screening?: Yes Do you worry about having a steady place to live?: no Problems where you live: no known problems In the past 12 months, have you had to go without electric, gas, oil or water in your home?: no 1. Within the past 12 months, we worried whether our food would run out before we got money to buy more.: Never true 2. Within the past 12 months, the food we bought just didn't last and we didn't have money to get more.: Never true Has lack of transportation kept you from medical appointments or from doing things needed for daily living?: no Has anyone in your life made you feel unsafe or unsupported?: no How hard is it for you to pay for the very basics like food, housing, medical care, and heating? Would you say it is:: Somewhat hard Do you want help finding or keeping work or a job?: I do not need or want help If for any reason you need help with day-to-day activities such as bathing, preparing meals, shopping, managing finances, etc., do you get the help you need?: I get all the help I need How often do you feel lonely or isolated from those around you?: Rarely Do you speak a language other than Citizen [place] at home?: No Does the patient want assistance with any of the above?: No Health Related Social Needs Health related social needs: problems related to housing/economic circumstances (Z59.89) and feeling lonely/isolated (Z60.8) PFSH All Active Problems (Updated 04/06/25 @ 13:09 by Kristian Hamilton) DVT prophylaxis (Acute) Hypokalemia (Acute) Hypoxemia associated with sleep (Acute) Neck mass (Acute) Elevated transaminase level (Acute) Hypothyroidism (Chronic) Hypomagnesemia (Chronic) Stage 3a chronic kidney disease (Chronic) Ankle pain (Acute) Gout (Acute) Hypocalcemia (Chronic) Medical History (Updated 04/06/25 @ 13:09 by Kristian Hamilton) Hypertension Low vitamin D level 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 Social History Smoking/Tobacco Use Status: Never Smoking risk assessment performed?: Yes Alcohol Intake: never Drug use: Never Housing: house Do you feel safe at home: Yes Do you feel safe in your relationship?: Yes Additional Social history: lives with his parents in [place]. Not milana herring working
[2025-04-07] VITALS (103 sets, daily range): BP systolic 118; BP diastolic 100; PULSE 55–103; RESP 0–39; O2SAT 19–100
[2025-04-07 05:47] LABS: BE (Venous) 7 mmol/L (-2-3); HCO3 (Venous) 33 mmol/L (23-28); O2 Sat (Venous) 59 %; TCO2 (Venous) 30 mmol/L (24-29); pO2 (Venous) 35 mmHg
[2025-04-07 05:55] LABS: pCO2 (Venous) 62 mmHg (41-51)
[2025-04-07 06:04] LABS: Anion Gap 11.2 mmol/L (3-11); BUN 40 mg/dL (7-18); CO2 32.8 mmol/L (21.0-32.0); Calcium 10.3 mg/dL (8.5-10.1); Chloride 98 mmol/L (98-107); Glucose 102 mg/dL (74-106); Magnesium 2.5 mg/dL (1.8-2.4); Potassium 4.1 mmol/L (3.5-5.1); Sodium 142 mmol/L (136-145)
[2025-04-07] MEDS: Levothyroxine 150 MCG TAB PO (07:33)
--- NOTE | 2025-04-07 08:00 | W.PULMCON ---
General Date Of Service Date of service: 04/07/25 Time of Service: 07:30 Requesting physician: Kristian Hamilton Reason for Consult: Nocturnal hypoxia Recommendations: Assessment: 1. Nocturnal hypoxemic respiratory faliure - most likely related to underlying GEREMIAS 2. Obesity hypoventilation syndrome 3. Neck mass - CT imaging does not show significant airway obstruction from the neck mass. Do not believe this is the cause of his noctural hypoxia Recommendations: - check ABG this AM. If PCO2 is elevated > 52, may be able to qualify for home NIV for OHS. He has not tolerated a full face mask, but could try nasal mask with chin strap or nasal pillows. If he does not qualify, plan to discharge with 3 L O2 with sleep and will help arrange for an outpatient sleep evaluation - follow up with ENT or endocrinology regarding his neck mass - Assessment and Plan Assessment and plan (1) Hypoxemia associated with sleep: Status: Acute (2) Neck mass: Status: Acute (3) Snoring: Status: Acute (4) Obesity hypoventilation syndrome: Status: Acute History of Present Illness Narrative: Patient is a 39 yo with a history of morbid obesity, prior thyroidectomy, and hypoparathyroidism who was admitted on 04/05 for further evaluation of his neck mass and nocturnal hypoxia. CT neck imaging showed a 3.1 x 2.4 cm anterior neck mass. He had a thyroidectomy may years ago for hypothyroidism and multiple thyroid nodules (per patient). Has recently admitted for severe hypocalcemia. During his hospitalization, he had severe O2 desaturations on monitoring. Also had loud snoring and witnessed apnea. He has tried NIV with a full face mask in the past, however, could not tolerate due to claustrophobia. He denies having any prior sleep studies. Denies dyspnea or cough. Denies history of lung disease Family history: mother - lung nodules Smoking history: none ROS: 10 pt ROS negative except as in HPI PFSH All Active Problems (Updated 04/07/25 @ 08:17 by Francois Castano MD) Obesity hypoventilation syndrome (Acute) Snoring (Acute) DVT prophylaxis (Acute) Hypokalemia (Acute) Hypoxemia associated with sleep (Acute) Neck mass (Acute) Elevated transaminase level (Acute) Hypothyroidism (Chronic) Hypomagnesemia (Chronic) Stage 3a chronic kidney disease (Chronic) Ankle pain (Acute) Gout (Acute) Hypocalcemia (Chronic) Medical History (Updated 04/07/25 @ 08:17 by Francois Castano MD) Hypertension Low vitamin D level 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 Social History Smoking/Tobacco Use Status: Never Smoking risk assessment performed?: Yes Alcohol Intake: never Drug use: Never Housing: house Do you feel safe at home: Yes Do you feel safe in your relationship?: Yes Additional Social history: lives with his parents in [place]. Not currently working Visit Medication and Allergies Active Medications Generic Name Dose Route Start Last Admin Trade Name Freq PRN Reason Stop Dose Admin Acetaminophen 650 mg 04/05/25 20:02 Acetaminophen 325 Mg Tab PO Q4H PRN PRN Al Hydrox/Mg Hydrox/Simethicone 30 ml 04/05/25 20:02 Mylanta Suspension 30 Ml Cup PO Q2H PRN PRN Calcitriol 0.5 mcg 04/06/25 08:30 04/06/25 19:21 Calcitriol 0.25 Mcg Cap PO 0.5 mcg BID GILLIAN Administration Calcium/Vitamin D 1 tab 04/06/25 08:30 04/06/25 19:21 Calcium 600mg/Vit D 200u Tab PO 1 tab TID GILLIAN Administration Docusate Sodium 100 mg 04/05/25 20:02 Docusate Sodium 100 Mg Cap PO TID PRN PRN Ergocalciferol 50,000 units 04/12/25 09:00 Ergocalciferol 12252 Units Cap PO Q7D GILLIAN IV Miscellaneous Supplies 1 each 04/05/25 20:15 Iv Access IV DIRECTED GILLIAN Levothyroxine Sodium 150 mcg 04/06/25 08:30 04/07/25 07:33 Levothyroxine 150 Mcg Tab PO 150 mcg DAILY GILLIAN Administration Lisinopril 20 mg 04/06/25 08:30 04/06/25 07:46 Lisinopril 10 Mg Tab PO 20 mg DAILY GILLIAN Administration Magnesium Hydroxide 30 ml 04/05/25 20:02 Milk Of Magnesia 30 Ml Cup PO DAILY PRN PRN Polyethylene Glycol 17 gm 04/05/25 20:02 Polyethylene Glycol 3350 17 Gm Packet PO DAILY PRN PRN Constipation Sodium Chloride 0 ml 04/05/25 20:02 Normal Saline Flush 10 Ml Syr IVP PRN PRN Sodium Chloride 0 ml 04/06/25 08:30 04/06/25 19:43 Normal Saline Flush 10 Ml Syr IVP Not Given BID GILLIAN Sodium Chloride 0 ml 04/05/25 20:02 Normal Saline 10 Ml Vial IJ DIRECTED PRN Allergies bee venom protein (honey bee) Allergy (Unverified 04/04/25 10:06) Anaphylaxis bassam Allergy (Unverified 04/04/25 10:06) Anaphylaxis Exam Narrative Exam Narrative: General: alert, no acute distress Head: normocephalic ENT: no stridor, trachea midline CV: normal rate, regular rhythm Respiratory: no wheezing, no crackles, no rhonchi, no prolonged expiration GI: abd soft, non-tender, non-distended Skin: no rashes Extremities: no edema, no digital clubbing Psych: normal affect Results Last Vital Signs Temp 36.2 C L 04/05/25 19:25 Pulse 85 04/07/25 02:38 Resp 21 04/07/25 02:38 BP 151/103 H 04/06/25 15:21 Pulse Ox 96 04/07/25 02:38 Labs 04/06/25 05:40 04/07/25 05:39 Labs: Laboratory Results - last 24 hr 04/07/25 05:39 VBG pH 7.33 VBG pCO2 62 H* VBG pO2 35 VBG HCO3 33 H VBG Total CO2 30 H VBG O2 Saturation 59 VBG Base Excess 7 H Sodium 142 Potassium 4.1 Chloride 98 Carbon Dioxide 32.8 H Anion Gap 11.2 H BUN 40 H Creatinine 2.3 H Est GFR (CKD-EPI 2020) 35.91 Glucose 102 Calcium 10.3 H Magnesium 2.[address] scan - chest: report reviewed, image reviewed and other
[2025-04-07] MEDS: Calcitriol 0.25 MCG CAP 0.5 MCG PO (08:31)
[2025-04-07] MEDS: Calcium 600mg/Vit D 200U TAB 1 TAB PO ×2 (08:31→14:45)
[2025-04-07] MEDS: Lisinopril 10 MG TAB 20 MG PO (08:31)
[2025-04-07 08:57] LABS: BE 4 mmol/L (-2-3); FIO2L ROOM AIR L; HCO3 28 mmol/L (22-26)
--- NOTE | 2025-04-07 10:20 | PDOC.CMPRO ---
Date of service: 04/07/25 Time of Service: 10:20 Care Management Progress Note Discharge Potential Discharge Needs: PCP F/U Appt Anticipated Barriers to Discharge: None Identified Patient/Family Education Needs: Review discharge instructions, discuss Ask Me Three Transportation: Private vehicle Plan: Anticipate Randy will be discharged home with no new services when medically cleared. He will follow up with his PCP and plan of care and transport with family. CM will follow and continue to assess for discharge concerns. Social Determinants of Health Screening Social Determinants of health last assessed in clinic: 04/06/25 Will the Patient Participate in the Screening?: Yes Do you worry about having a steady place to live?: no Problems where you live: no known problems In the past 12 months, have you had to go without electric, gas, oil or water in your home?: no Has lack of transportation kept you from medical appointments or from doing things needed for daily living?: no Has anyone in your life made you feel unsafe or unsupported?: no How hard is it for you to pay for the very basics like food, housing, medical care, and heating? Would you say it is:: Somewhat hard Do you want help finding or keeping work or a job?: I do not need or want help If for any reason you need help with day-to-day activities such as bathing, preparing meals, shopping, managing finances, etc., do you get the help you need?: I get all the help I need How often do you feel lonely or isolated from those around you?: Rarely Do you speak a language other than [place] at home?: No Does the patient want assistance with any of the above?: No Health Related Social Needs Health related social needs: problems related to housing/economic circumstances (Z59.89) and feeling lonely/isolated (Z60.8)
--- NOTE | 2025-04-07 13:29 | PDOC.CMDIS ---
Date of service: 04/07/25 Time of Service: 13:29 LACE Index Scoring Tool Questions: Length of Stay (in days): 2 Was the patient admitted via the E.D.?: No Comorbidities: Any Tumor and Liver or Renal Disease E.D. Visits: 1 Answers: Total Score: 8 Risk of Readmission: Low Risk Care Management Discharge Plan Reason for Hospitalization: hypocalcemia Discharge Plan: Randy will be discharged home with new home oxygen coordinated by RT. He will follow up with his PCP and plan of care and transport with family. Patient/Family Education Needs: Review discharge instructions, limitations, follow up plan and discuss Ask Me Three SDOH Health Related Social Needs: Health related social needs house/econ circumstance Health related social needs details n/a
--- NOTE | 2025-04-07 13:50 | RESPIRATORY ---
Addendum entered by Melony Aguilar 04/08/25 11:22: 04/08 @ 1120: Overnight oximetry results faxed to Mine Zamora at [facility] so they can coordinate delivery of O2 to patient's house. Original Note: Pt's ABG today did not qualify him for new NIV at home. Pt had overnight oximetry done last night and will have new prescription for O2 nocturnally at home, 4L. DME: [facility].
--- NOTE | 2025-04-07 14:07 | W.PM.DS.N ---
Date of service: 04/07/25 Time of Service: 14:07 DS: Diagnosis Discharge Diagnosis (1) Hypoxemia associated with sleep: Status: Acute (2) Neck mass: Status: Acute (3) Snoring: Status: Acute (4) Obesity hypoventilation syndrome: Status: Acute Discharge Plan Disposition Patient Disposition: Home Condition: Stable Discharge Details Reason For Visit: Neck mass, Obstructive Hypoxemia Admit Date/Time: 04/05/25 20:02 Admit Provider: Cameron Perdomo Attending Provider: Cameron Perdomo Primary Care Provider: Gilmar Argueta Hospital Course Hospital Course: 39 yo M with surgical hypothyroidism and hypoparathyroidism, was discharged 04/05 after treatment of severe hypocalcemia, and clinically evidence apnea and profound hypoxia when sleeping but no formal diagnosis of GEREMIAS called back after re-read of neck CT done for concern of airway obstruction showed a 4cm mass anterior to trachea. Due to the degree of hypoxia, the team wanted to confirm this wasn't causing airway compromise. The case and CT was reviewed by ENT consult from [facility] and by Dr. Castano from pulmonology/critical care, who both felt like the mass was not contributing to obstruction, but he likely has obstructive sleep apnea and hypoventilation syndrome. He had an overnight oxymetry confirmed hypoxia. VBG at 5:30 am showed pCO2 of 62, ABG at 8:40 showed pCO2 of 47. He was sent home with nighttime oxygen for morbid obesity hypoventilation syndrome. He should have a formal sleep study. He will reschedule with his help desk engineer, with a plan to ultrasound and biopsy the anterior neck mass and follow up on hypocalcemia and hypothryoidism (see previous discharge summary from 04/05/25. Recommendations for Follow Up Recommended tests to be ordered by follow up provider: sleep study referral Home Meds and New Rx's Prescriptions: Continued levothyroxine 300 mcg tablet 150 mcg PO DAILY Patient Comments: TAKE ONE TABLET BY MOUTH EVERY DAY ON AN EMPTY STOMACH calcium carbonate-vitamin D3 600 mg-5 mcg (200 unit) Tablet 1 tab PO TID Qty: 0 0RF ergocalciferol (vitamin D2) [Vitamin D2] 1,250 mcg (50,000 unit) Capsule 1,250 mcg PO Q7D 91 Days Qty: 12 0RF lisinopril 10 mg tablet 20 mg PO DAILY Qty: 0 0RF calcitriol 0.25 mcg Capsule 0.5 mcg PO BID Discharge Instructions Additional Instructions: use the oxygen at night follow up with a formal sleep clinic referral and with your help desk engineer Stand Alone Forms: Portal Information Activity:: Activity as Tolerated Equipment/Supplies:: No Equipment Needed Diet:: As Tolerated Discharge Orders Discharge Orders: Discharge Order (Routine); Ordered 04/07/25 Ordered By: Kristian Hamilton DS: Summary Time Spent with Patient providing and/or coordinating discharge services: Greater than 30 minutes Status at Discharge Functional status at discharge: independent ambulation Overall status at discharge: patient is back to baseline Mental Status: mental status grossly normal Speech and Movement: speech and movement normal Mood: congruent mood Affect: normal affect Quality:SDOH Health Related Social Needs: Health related social needs house/econ circumstance Health related social needs details n/a Exam Narrative Exam Narrative: General: alert, no acute distress Head: normocephalic ENT: no stridor, trachea midline, non-tender mass CV: normal rate, regular rhythm Respiratory: no wheezing, no crackles, no rhonchi, no prolonged expiration GI: abd soft, non-tender, non-distended Extremities: no edema, no digital clubbing Psych Mental Status: mental status grossly normal Speech and Movement: speech and movement normal Mood: congruent mood Affect: normal affect DS: Data Vitals/I&O Vitals and I&O: Vital Signs Temperature 36.2 C L 04/05/25 19:25 Temperature Source Temporal Artery Scan 04/05/25 19:25 Pulse 85 04/07/25 02:38 Pulse 86 04/07/25 02:38 Respiratory Rate 21 04/07/25 02:38 Respiratory Effort Normal 04/05/25 19:25 Respiratory Depth Deep 04/05/25 19:25 Respiratory Pattern Normal 04/05/25 19:25 Blood Pressure 151/103 H 04/06/25 15:21 Blood Pressure Mean 119 04/06/25 15:21 Pulse Oximetry 96 04/07/25 02:38 Oxygen Delivery Method OxyMask 04/06/25 07:33 Oxygen Flow Rate 3 04/06/25 07:33 Pain Level 0 04/05/25 19:25 Comment Pt does not wear while awake but agrees to wear when ready for sleep to try to help with known desat and he does not tolerate bi-pap per attempts prom prior admission today. 04/05/25 19:25 Comment Woken up due to desat to 5% SpO2 04/07/25 02:35 Intake & Output 04/06/25 04/07/25 04/07/25 23:59 11:59 23:59 Output Total 1100 / 1400 700 / 700 Balance -1100 / -1400 -700 / -700 Output: Urine 1100 / 1400 700 / 700 Other: Urine Color Light Tiff Yellow Yellow Urine Appearance Clear Clear Urine Odor Normal Comment Patient voided a large, unmeasured amount in bedside commode mixed with stool. Stool Size Copious Stool Characteristics Soft Data Completed and Pending Pending Labs at Discharge: 04/06/25 04/07/25 04/07/25 05:40 05:39 08:43 WBC 11.92 H RBC 4.10 L Hgb 12.7 L Hct 38.3 L MCV 93 MCH 31.0 MCHC 33.2 RDW 12.6 Plt Count 253 MPV 11.1 H ABG Sample Site Right Radial ABG pH 7.39 ABG pCO2 47 H ABG pO2 82 ABG HCO3 28 H ABG Total CO2 30 H ABG O2 Saturation 96 ABG Base Excess 4 H VBG pH 7.33 VBG pCO2 62 H* VBG pO2 35 VBG HCO3 33 H VBG Total CO2 30 H VBG O2 Saturation 59 VBG Base Excess 7 H Oxygen Liter Flow ROOM AIR Sodium 142 142 Potassium 3.4 L 4.1 Chloride 99 98 Carbon Dioxide 28.8 32.8 H Anion Gap 14.2 H 11.2 H BUN 37 H 40 H Creatinine 2.0 H 2.3 H Est GFR (CKD-EPI 2020) 42.47 35.91 Glucose 91 102 Calcium 8.7 10.3 H Magnesium 2.2 2.5 H Total Bilirubin 0.7 AST 83 H ALT 46 Alkaline Phosphatase 76 Total Protein 8.6 H Albumin 4.2 PFSH All Active Problems (Updated 04/07/25 @ 08:17 by Francois Castano MD) Obesity hypoventilation syndrome (Acute) Snoring (Acute) DVT prophylaxis (Acute) Hypoxemia associated with sleep (Acute) Neck mass (Acute) Elevated transaminase level (Acute) Hypokalemia (Acute) Hypothyroidism (Chronic) Hypomagnesemia (Chronic) Stage 3a chronic kidney disease (Chronic) Hypocalcemia (Chronic) Gout (Acute) Ankle pain (Acute) Medical History (Updated 04/07/25 @ 08:17 by Francois Castano MD) Hypertension Low vitamin D level 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 Social History Smoking/Tobacco Use Status: Never Smoking risk assessment performed?: Yes Alcohol Intake: never Drug use: Never Housing: house Do you feel safe at home: Yes Do you feel safe in your relationship?: Yes Additional Social history: lives with his parents in [place]. Not currently working Time Spent with Patient Time Spent with Patient: <45 minutes Time was spent: preparing to see the patient(eg.review tests), obtaining and/or reviewing separately otained hiistory, ordering medications,tests, procedures, referring, communicating with other health youth care specialist, indepentently interpreting results, counseling the patient and care coordination
== END 2025-04-07 15:54 | disposition home or self-care (01) ==
PROVIDERS: Internal Medicine Pulmonary Disease; Admitting Provider Family Medicine; PCP Family Medicine; Responsible Provider Family Medicine; Visit Provider Family Medicine
DX: R22.1 Localized swelling, mass and lump, neck (principal); E83.51 Hypocalcemia; E87.6 Hypokalemia; E83.42 Hypomagnesemia; E89.0 Postprocedural hypothyroidism; N18.31 Chronic kidney disease, stage 3a; E66.2 Morbid (severe) obesity with alveolar hypoventilation; Z68.41 Body mass index [BMI] 40.0-44.9, adult; R09.02 Hypoxemia; R74.01 Elevation of levels of liver transaminase levels; E89.2 Postprocedural hypoparathyroidism
CPT/HCPCS: 00123; 36415; 80048; 80053; 82805; 85027; J1650; 36600; 83735; 94762; 99223; 99232; 99238; G0378

== ENCOUNTER 2025-04-15 14:56 | Outpatient (REF) | payer MEDICAID, SELFPAY ==
[2025-04-15 17:01] LABS: Magnesium 2.4 mg/dL (1.6-2.6)
[2025-04-15 18:13] LABS: Anion Gap 8.9 mmol/L (3-11); BUN 42 mg/dL (9-23); CO2 29.1 mmol/L (20.0-31.0); Calcium 8.5 mg/dL (8.3-10.6); Chloride 105 mmol/L (98-107); Glucose 82 mg/dL (74-106); Potassium 4.2 mmol/L (3.5-5.1); Sodium 143 mmol/L (136-145)
[2025-04-21 15:53] LABS: 1,25-Dihydroxyvitamin D 28 pg/mL (18-64)
== END 2025-04-15 14:57 | disposition home or self-care (01) ==
LOC: NCHCN 14:56
PROVIDERS: PCP Family Medicine; Visit Provider Family Medicine
DX: E87.6 Hypokalemia (principal); D68.00 Von Willebrand disease, unspecified
CPT/HCPCS: 80048; 82652; 83735; 84100